=== PATIENT | male | born 1965 | race Caucasian/White ===

== ENCOUNTER → 2018-02-22 12:44 | Outpatient (CLI) | payer BC, SELFPAY ==
--- NOTE | 2018-02-22 12:56 | CT_ITS ---
STUDY: CT ABDOMEN AND PELVIS WITH CONTRAST REASON FOR EXAM: Male, 52 years old. Prostate cancer. RADIATION DOSAGE (If Supplied By Facility): CTDIvol = ( 16.99 ) mGy, DLP = ( 1467.93 ) mGycm TECHNIQUE: Transaxial images were obtained from the dome of the diaphragm to the symphysis pubis without oral contrast. 100 ml of Isovue 300 contrast was administered. Sagittal and coronal images were reconstructed. Individualized dose optimization techniques were used for this CT. COMPARISON: CT of the abdomen, July 01, 2017. FINDINGS: The visualized lung bases are unremarkable. The visualized portions of the heart are within normal limits. Normal liver. Normal gallbladder and extrahepatic biliary system. Normal spleen. Normal pancreas. Normal bilateral adrenal glands. Normal right kidney. The mass seen in the lower pole right kidney on the prior study is no longer present. Normal left kidney. Normal bilateral ureters. Normal visualized stomach. Normal small intestine. Normal colon. The appendix is visualized and appears normal. There is diffuse atherosclerotic calcification of the abdominal aorta, without a demonstrated aneurysm. Normal inferior vena cava. Normal retroperitoneum. Normal urinary bladder. Normal prostate and seminal vesicle appears no pelvic lymphadenopathy. No free air or free fluid is seen within the peritoneal cavity. There is an umbilical artery of omental fat. There is a left inguinal hernia of omental fat. The abdominal wall is otherwise unremarkable. There are degenerative changes of the lumbar spine. No lytic or blastic lesions are seen in the visualized bony structures. CT/Abdomen/Pelvis WITH Contrast IMPRESSION: Normal enhanced CT of the abdomen and pelvis. There is no evidence of local extension or metastatic disease. Electronically Signed: Saji Wong DO at 17:40 EDT Tel [phone], Service support ,
[2018-02-22 13:14] LABS: Anion Gap 7 (5-15); BUN 15 mg/dL (7-18); BUN/Creat Ratio 14.7 RATIO (10-20); Calcium,Total 9.1 mg/dL (8.5-10.1); Chloride 104 mmol/L (98-107); Creatinine, Serum 1.02 mg/dL (0.70-1.30); EST Glomerular Filtration Rate 82 mL/min (>60); Est Glom Filt Rate - Afr Amer 99 mL/min (>60); Glucose 99 mg/dL (74-106); Potassium 3.8 mmol/L (3.5-5.1); Sodium Level 137 mmol/L (136-145)
== END ==
PROVIDERS: Visit Provider Urology
DX: C61 Malignant neoplasm of prostate (principal)
CPT/HCPCS: 36415; 74177; 80048; Q9967

== ENCOUNTER → 2018-03-21 17:16 | Outpatient (CLI) | payer BC, SELFPAY ==
--- NOTE | 2018-03-21 17:30 | RAD_ITS ---
STUDY: X-RAY CHEST REASON FOR EXAM: Male, 52 years old. Flank pain, kidney cancer TECHNIQUE: Frontal and lateral views COMPARISON: August 11, 2017 FINDINGS: The lungs are clear and expanded. There is no demonstrated pleural abnormality. Normal size heart. Normal mediastinum and jelena. Normal visualized pulmonary arteries. Normal visualized aortic arch and descending thoracic aorta. Mild degenerative changes of the thoracic spine. Normal visualized ribs, clavicles, and shoulders. There is no demonstrated abnormality of the visualized soft tissue structures of the upper abdomen. RAD/Chest PA and Lateral IMPRESSION: Normal x-ray examination of the chest. Electronically Signed: Maximo Davison DO at 22:23 EDT Tel [phone], Service support ,
[2018-03-21 18:56] LABS: ALB/GLOB Ratio 1.2 RATIO (0.9-2.4); AST(SGOT) 20 U/L (15-37); Alanine Aminotransfer ALT/SGPT 37 U/L (16-61); Alkaline Phosphatase 58 U/L (45-117); Anion Gap 9 (5-15); BUN 13 mg/dL (7-18); BUN/Creat Ratio 12.5 RATIO (10-20); Calcium,Total 8.4 mg/dL (8.5-10.1); Chloride 105 mmol/L (98-107); Creatinine, Serum 1.04 mg/dL (0.70-1.30); EST Glomerular Filtration Rate 80 mL/min (>60); Est Glom Filt Rate - Afr Amer 97 mL/min (>60); Globulin 3.3 g/dL (2.2-4.2); Glucose 91 mg/dL (74-106); Potassium 3.5 mmol/L (3.5-5.1); Protein, Total 7.3 g/dL (6.4-8.2); Sodium Level 141 mmol/L (136-145)
== END ==
PROVIDERS: Visit Provider Urology
DX: Z87.442 Personal history of urinary calculi (principal); Z85.528 Personal history of other malignant neoplasm of kidney; Z12.5 Encounter for screening for malignant neoplasm of prostate
CPT/HCPCS: 36415; 71046; 80053

== ENCOUNTER → 2018-09-21 16:32 | Outpatient (CLI) | payer BC, SELFPAY ==
[2017-08-17 14:20] VITALS: BMI 37.4
[2018-09-21 17:23] LABS: Hematocrit 44.4 % (40-54); Hemoglobin 14.9 g/dl (13.0-16.5); Mean Corp Hgb Conc 33.6 g/gl (32-36); Mean Corpuscular Hgb 26.3 pg (27.0-32.0); Mean Corpuscular Volume 78.3 fL (80-94); Mean Platelet Vol. 8.8 fl (6.2-12.0); Platelet Count 250 K/mm3 (150-450); RBC Distribution Width CV 12.9 % (11.6-14.6); RBC Distribution Width SD 36.1 fl (35.1-43.9); Red Blood Count 5.67 M/mm3 (4.6-6.2)
[2018-09-21 17:24] LABS: Scan Indicated on CBC? Y/N NO
[2018-09-21 18:05] LABS: AST(SGOT) 36 U/L (15-37); Alanine Aminotransfer ALT/SGPT 65 U/L (16-61); Albumin, Serum 3.8 g/dL (3.2-5.0); Alkaline Phosphatase 76 U/L (45-117); Anion Gap 8 (5-15); BUN 14 mg/dL (7-18); BUN/Creat Ratio 13.9 RATIO (10-20); Calcium,Total 8.8 mg/dL (8.5-10.1); Chloride 104 mmol/L (98-107); Creatinine, Serum 1.01 mg/dL (0.70-1.30); EST Glomerular Filtration Rate 83 mL/min (>60); Est Glom Filt Rate - Afr Amer 100 mL/min (>60); Globulin 3.7 g/dL (2.2-4.2); Glucose 82 mg/dL (74-106); Protein, Total 7.5 g/dL (6.4-8.2); Sodium Level 140 mmol/L (136-145)
--- OUTSIDE RECORDS SUMMARY | 2018-11-16 22:41 | XMS RPT_ITS ---
:1965 Author Organization [facility] Care Team Providers Name Role Phone Quoc Iglesias Attending Unavailable Rachel, Umberto Referring Unavailable Quoc Iglesias Attending Unavailable Primay Care Physicia, No Primary Care Unavailable Quoc Iglesias Referring Unavailable Rachel, Umberto Attending Unavailable Rachel, Umberto Referring Unavailable Primay Care Physicia, No Primary Care Unavailable Rachel, Umberto Attending Unavailable Rachel, Umberto Referring Unavailable Primay Care Physicia, No Primary Care Unavailable Rachel, Umberto Attending Unavailable Rachel, Umberto Referring Unavailable Primay Care Physicia, No Primary Care Unavailable Rachel, Umberto Attending Unavailable Rachel, Umberto Referring Unavailable Primay Care Physicia, No Primary Care Unavailable PROBLEMS PROBLEMS DATE TYPE CONDITION / CODE ATTENDING STATUS SOURCE 10/03/2018 Unknown R59.9 - Enlarged Kelsie, Active [place] lymph nodes, [facility] unspecified / Hospital R59.9(ICD-10) Repository PROCEDURES PROCEDURES No Procedure Records FoundRESULTS RESULTS SURGERY VISIT REPORT Observed: 10/03/2018 Status: F Source: [place] 4:31 PM [facility] REPOSITORY [facility] [address] [place] [address] OFFICE VISIT Date of Service: 10/03/18 MR#: [id number] Acct: [id number] Name: MITESH CAMARA Rep #: [id number] : 1965 Provider: Quoc Iglesias MD Age/Sex: 52/M Location: [facility] Status: Signed Intake Vital Signs10/03/18 Body Mass Index (BMI) 37.4 10/03/18 Height 6 ft 10/03/18 Weight: 236 lb 5 oz 10/03/18 Body Mass Index (BMI) 32.0 10/03/18 Blood Pressure 133/86 H Intake Visit Reasons: Lt Armpit Lump CT WC 09/28 Chief Complaint: left axillary mass Waste And Batting Waste Chopper Required: No Is patient in pain?: No Allergies No Known Allergies Allergy (Verified 10/03/18 14:21) Medications Antiarthritic Combination No.2 [Glucosamine-Chondroitin] 2 tab PO BID 08/11/17 [History Confirmed 10/03/18] azithromycin 250 mg tablet See Rx Instructions PO .COMPLEX #6 tab 10/03/18 [Rx Confirmed 10/03/18] meloxicam 7.5 mg tablet 7.5 mg PO DAILY 10/03/18 [History Confirmed 10/03/18] PFSH Medical History BPH (benign prostatic hyperplasia) (Acute) Back pain (Acute) Cancer of kidney (Acute) Osteoarthritis (Acute) Surgical History History of partial nephrectomy (Acute) Family History Mother Heart disease Cancer Social History Smoking Status: Current every day smoker how long ago did patient quit smokin years HPI HPI HPI: MITESH CAMARA, is a 52 M who presents to the office today for left axillary swelling. The patient notes that he has been feeling a lump under his left armpit for the last month or so. At the time that this started he was having fevers and chills and night sweats. He does not note any known trauma to his arm or chest region. He has never noticed this in the past. ROS General General: Yes weight change (Weight loss, intentional); no fatigue Musc Musculoskeletal: Yes back problems and arthritis Cardio Cardiovascular: No murmur, pacemaker, heart disease, atrial fibrillation, high blood pressure, heart attack, heart stent, palpitations, shortness of breat with exertion or chest pain Psych Psychiatric: No depression or anxiety Resp Respiratory: No shortness of breath, No sleep apnea, No cough, No COPD, No asthma, No emphysema, No wheezing Gastro Gastrointestinal: No abdominal pain, No nausea or vomiting, No diarrhea, No constipation, No blood in stool, No acid reflux, No hemorrhoids, No ulcers, No gallbladder problem, No black,tarry stools [place] Hematologic: No blood thinners Exam Const General: cooperative Orientation: alert, oriented x3 Resp Effort AND Inspection: normal respiratory effort Auscultation: clear to auscultation bilaterally Cardio Rate: regular rate Rhythm: regular rhythm Heart Sounds: no murmurs GI Inspection: non-distended Palpation: soft, nontender Musc Other: Patient does have left axillary swelling. Office Procedures Biopsy Provider Documentation The left axilla was prepped and draped in usual sterile fashion. Next an ultrasound was used to localize the lymph node. A small segment of skin was anesthetized with lidocaine and a small prachi was made with an 11 blade scalpel. Next a 14-gauge core needle was placed into the axillary mass under direct visualization with ultrasound and deployed several times. At least 5 good cores were obtained. The patient did have purulent material coming out of his incision from the lymph node biopsy. This was cultured. Next the area was cleaned and a Steri-Strip was placed over the incision and as well as a bandage. Biopsy Lymphnode Biopsy: 48016 Lymphnode w Needle Procedure Time Out Time Out Informed consent given: Yes Consent signed: Yes Time out checklist: patient, procedure, site marked/identified, positioning of patient, supplies available, allergies confirmed, team agrees on procedure Time out staff in room: Yes Time out verified: Yes Time out date: 10/03/18 Time out time: 14:23 Assessment AND Plan Problems 1. Enlarged lymph nodes in armpit R59.0 Plan 1. The patient had a recent CT scan which showed an enlarged necrotic lymph node in the left axilla as well as swelling of the surrounding lymph nodes. The patient does not note any obvious trauma but he does have what appears to be a possible source of infection on his left middle finger. 2. I went over the CAT scan results with him. I am unsure if this is inflammatory versus malignant. I offer the patient excisional and core needle biopsy. I did a core needle biopsy under ultrasound guidance in the office. There was purulent material aspirated from lymph node. The patient was started on a Z-Alexis as there is a possibility that this is cat scratch disease. The patient does admit to having cats and does not know where the infection on his finger came from. 3. Await pathology and cultures. Continue antibiotics. I will call him later this week. Quoc gIlesias MD Pager: [facility] [address] [place] [address], [address] [place] [address] Office: Orders Orders: Medications New: azithromycin (Zithromax Z-Alexis) take 500 mg today (day 1), then 25 Florecita Pineda PA-C 0 mg for 4 days (days 2-5) PO 6 ta bs 0RF Coding Level of Care Code No Charge Diagnoses Enlarged lymph nodes in armpit R59.0 Additional Codes Biopsy - Lymphnode Biopsy: 50832 Lymphnode w Needle (93482) Comment procedure 10/03/18 1631 <Electronically signed by Quoc Iglesias MD> Date Quoc Iglesias MD Cosigner Signature: Date (if applicable) CC: Parrish Ramos MD Observed: 10/03/2018 Status: F Source: [place] CULTURE, DEEP WOUND 4:17 PM [facility] REPOSITORY Gram Stain Gram Stain 3+ Red Blood Cells Rare White Blood Cells No organisms seen Wound Culture No growth aerobically. Cult, Anaerobic No anaerobic bacteria isolated. Performed By: #### M100.1500 #### [facility] [address] [place], [address] CAT SCRATCH DISEASE Collected: 10/03/2018 Status: F Source: [place] AB 3:21 PM [facility] REPOSITORY TYPE CODE TESTS RESULT OUT OF RANGE REFERENCE UNITS LAB L7100.0200 Neg:<1:320 titer Normal Negative B.henselae IgG LAB L7100.0300 Neg:<1:100 titer Normal Negative B.henselae IgM LAB L7100.0400 Neg:<1:320 titer Normal Negative B.hdez IgG LAB L7100.0500 Neg:<1:100 titer Normal Negative B.hdez IgM Result Comment: Note: Bartonella henselae is now regarded as the etiologic agent of Cat Scratch Disease, bacillary angiomatosis, endocarditis and fever with bacteremia. Bartonella hdez also causes bacillary angiomatosis particularly among immunocompromised patients, and trench fever. This test was developed and its performance characteristics determined by [facility]. It has not been cleared or approved by the Food and Drug Administration. The FDA has determined that such clearance or approval is not necessary. Performed at: [address] [id number] Wood And Hardware Outfitter: Maribel Burton MD, Phone: [phone] Performed By: #### L7100.0100 #### [facility] (refer to report for specific site) refer to report for address and phone number AXILLARY NODE BIOPSY Observed: 10/03/2018 Status: F Source: [place]AN[place] 2:50 PM [facility] REPOSITORY Patient: MITESH CAMARA : 1965 (52/M) Acct Num: [id number] Phys: [address],Quoc Unit Num: [id number] Loc: [facility] Specimen: [id number] Received: 10/03/183 Spec Type: AX NODE BX TISSUES 1 TISSUES: Axillary lymph node, NOS COMMENT The specimen is evaluated at the time of touch preps by Dr. Avila. Immediate Evaluation = Lymphocytes are noted. AFB and GMS stains with matched controls were used in the evaluation of this case and are negative for microorganisms. Immunohistochemistry ([id number]) supports the above diagnosis. There is no evidence of lymphoproliferative disorder. Case has been reviewed in consultation with Dr. Avila who concurs with the above diagnosis. IDC:CHEVY GROSS DESCRIPTION Received fresh labeled with the patient's name is a specimen designated left axillary lymph node. The specimen consists of multiple elongated fragments of hyatt soft tissue that in aggregate measure 3 x 1 x 0.1 cm. The specimen is totally submitted in one cassette. Green Marketing Analyst touch prep smears are prepared rapidly (2 stained with DQ and 2 stained with H AND E). Tissue is saved for flow cytometry in case it is needed. The tissue is submitted in one cassette. / : 10/03/18 The tissue saved for flow is submitted in cassette 2. / : 10/04/18 TC:3 CPT: 58042, 40228, 23970 x2 HEADER OPERATION: Needle core biopsy of left axilla lymph node PRE-OP DIAGNOSIS: Enlarged axillary lymph node TISSUE SUBMITTED: Left axillary lymph node MICROSCOPIC DESCRIPTION Slides are reviewed. MICROSCOPIC DIAGNOSIS Left axillary lymph node, core biopsy: Necrotizing granulomatous inflammation. Negative for acid fast bacilli and fungal organisms. No evidence of malignancy. See Comment. AM:dmitri 10/04/18 Signed Tarik Mendosa DO 10/06/18 <signature on file> Performed By: #### PAXNB #### [facility] [place], [address] IMMUNOHISTOCHEMISTRY Observed: 10/03/2018 Status: F Source: [place] 12:00 AM [facility] REPOSITORY Patient: MITESH CAMARA : 1965 (52/M) Acct Num: [id number] Phys: [address],Quoc Unit Num: [id number] Loc: [facility] Specimen: [id number] Received: 10/05/181031 Spec Type: IMMUNO TISSUES 1 TISSUES: Axillary lymph node, NOS SPECIMEN INFORMATION: Tissue Source: Left axillary lymph node Clinical Info: Enlarged axillary lymph node Specimen Number: [id number] CPT code: 46858, 00316 x6 METHODOLOGY: Deparaffinized sections of prefer/formalin-fixed tissue or PAP/DQ stained slides are incubated with monoclonal/polyclonal antibodies/oligonucleotide probes. Localization is made via biotin free immunoperoxidase method. Appropriate controls are performed and reacted as expected. Results on target cell population are indicated in the following table: RESULTS: ANTIBODY / CLONE RESULT CD3 (PS1) positive CD5 (SP10) positive CD45 (RP2/18) positive CD79a (11E3) positive CD138 (B-A38) positive AE1-3 (AE1/AE3/PCK26) negative Macro (HAM-56) positive These tests were developed and their performance characteristics determined by [facility]. They may not have been cleared or approved by the U.S. Food and Drug Administration. The FDA has determined that such clearance or approval is not necessary. INTERPRETATION: Left axillary lymph node, core biopsy: Polytypic lymphoid tissue. AM:dmitri 10/06/18 Comment: There is no evidence of lymphoproliferative disorder. PHYSICIAN AND INSTITUTION [address] [address] Signed Tarik Mendosa DO 10/06/18 <signature on file> Performed By: #### PIMM #### [facility] [address] [place] [address]. [place], [address] CHEST PA AND LATERAL Observed: 09/28/2018 Status: F Source: [place] 2:49 PM [facility] REPOSITORY [facility] Imaging Services [address] [place] [address] Chest PA and Lateral MR#: [id number] Acct: [id number] Name: MITESH CAMARA Rep #: [id number] : 1965 M 52 From: Antione Cabrales MD PCP: Care Physician, No Primary Status: REG CLI Study: Chest PA and Lateral Date of Exam: 09/28/18 Exam# [id number] Ordering Dr: Parrish Ramos MD STUDY: X-RAY CHEST REASON FOR EXAM: Male, 52 years old. Lump on left side underarm pit. TECHNIQUE: PA and lateral views of the chest. COMPARISON: PA and lateral chest x-ray March 21, 2018. FINDINGS: The lungs are clear and expanded. There is no demonstrated pleural abnormality. Normal size heart. Normal mediastinum and jelena. Normal visualized pulmonary arteries. Normal visualized aortic arch and descending thoracic aorta. There are stable multilevel degenerative changes and minor dextroscoliosis of the visualized thoracic spine. Normal visualized ribs, clavicles, and shoulders. There is no demonstrated abnormality of the visualized soft tissue structures of the upper abdomen. RAD/Chest PA and Lateral IMPRESSION: No acute cardiopulmonary disease. Electronically Signed: Addy Cabrales MD at 13:54 EST , Service support , CC: No Primary Care Physician; Parrish Ramos MD Weatherseal Technician: Signed CHEST WITH CONTRAST Observed: 09/28/2018 Status: F Source: [place] 2:44 PM [facility] REPOSITORY [facility] Imaging Services [address] [place] [address] Chest WITH Contrast MR#: [id number] Acct: [id number] Name: MITESH CAMARA Rep #: [id number] : 1965 M 52 From: Phillip Penn MD PCP: Care Physician, No Primary Status: REG CLI Study: Chest WITH Contrast Date of Exam: 09/28/18 Exam# [id number] Ordering Dr: Parrish Ramos MD STUDY: CT CHEST WITH CONTRAST REASON FOR EXAM: Male, 52 years old. Kidney cancer follow-up RADIATION DOSAGE (If Supplied By Facility): CTDIvol = ( 22.83 ) mGy, DLP = ( 3005.78 ) mGycm TECHNIQUE: Transaxial imaging was performed following intravenous administration of 100mL ml of Isovue 300 contrast material. Individualized dose optimization techniques were used for this CT. COMPARISON: None. FINDINGS: TRACHEA, THYROID, ESOPHAGUS: No tracheomalacia,stricture or wall thickening. Thyroid and esophagus are normal CARDIOVASCULAR SYSTEM: The thoracic aorta is normal with no focal aneurysm or dissection. There are no abnormal calcifications/metallic densities at the aortic root. The pulmonary trunk and the left and right pulmonary arteries and their lobar and segmental branches all fail to show any abnormal and persistent filling defects to indicate the presence of pulmonary embolism. The heart is normal in size with no demonstration of any right ventricular strain. No developmental vascular anomalies are seen. JELENA AND LYMPH NODES: There is a large necrotic 3.4 x 2.4 cm left axillary lymph node. No right axillary adenopathy. No mediastinal adenopathy. LUNGS, LOW-ATTENUATION: No traction bronchiectasis, honeycombing,emphysema, lung cysts or cavitations LUNGS, HIGH ATTENUATION: No nodules/masses, ground glass opacities/consolidations or increased interstitial markings LUNGS, MOSAIC/CRAZY PAVING: Not evident PLEURA AND CHEST WALL: No plural effusions, pneumothoraces,rib fractures or any osteolytic/osteoblastic changes . The soft tissue chest wall including the breasts are normal UPPER ABDOMEN: The visualized portions of kidneys are normal. No metastatic foci in the liver. CT/Chest WITH Contrast IMPRESSION: The visualized portions of the kidneys look normal. The partial nephrectomy on the left side may have involved the inferior pole Enlarged 3.4 x 2.4 cm necrotic left axillary lymph adenopathy. No mediastinal, right axillary or hilar adenopathy. No osteolytic or osteoblastic changes are seen Electronically Signed: Phillip Penn MD at 7:52 EST Tel , Service support , CC: No Primary Care Physician; Parrish Ramos MD Weatherseal Technician: Signed CT ABD/PELVIS W/WO Observed: 09/28/2018 Status: F Source: [place] CONTRAST 2:44 PM [facility] REPOSITORY [facility] Imaging Services [address] [place] [address] [address] Abd/Pelvis W/WO Contrast MR#: [id number] Acct: [id number] Name: MITESH CAMARA Rep #: [id number] : 1965 M 52 From: Antione Cabrales MD PCP: Care Physician, No Primary Status: REG CLI Study: CT Abd/Pelvis W/WO Contrast Date of Exam: 09/28/18 Exam# [id number] Ordering Dr: Parrish Ramos MD STUDY: CT ABDOMEN AND PELVIS WITH AND WITHOUT CONTRAST REASON FOR EXAM: Male, 52 years old. Kidney cancer follow- up. Prior partial left nephrectomy and prostatectomy for cancer. Left axillary lymph node x1 month. RADIATION DOSAGE (If Supplied By Facility): CTDIvol = ( 22.83 ) mGy, DLP = ( 3005.78 ) mGycm TECHNIQUE: Transaxial images were obtained from the dome of the diaphragm to the symphysis pubis without oral contrast. 75mL ml of Isovue 300 contrast was administered. Sagittal and coronal images were reconstructed. Individualized dose optimization techniques were used for this CT. COMPARISON: CT abdomen pelvis February 22, 2018. FINDINGS: The visualized lung bases are unremarkable. The visualized portions of the heart are within normal limits. There is decreased attenuation of the liver consistent with steatosis. There is hepatomegaly, the right lobe measuring 19.5 cm in height. The portal vein diameter is 1.7 cm. Normal gallbladder and extrahepatic biliary system. Common bile duct diameter is 4.5 mm. There is borderline to mild splenomegaly, measuring 13.7 x 13.1 x 4.55 cm. Normal pancreas. Normal bilateral adrenal glands. Minor deformity at the lower pole of the right kidney, consistent with postsurgical change. Normal left kidney. No hydronephrosis. Normal visualized stomach. Normal small intestine. Normal colon. The appendix is visualized on series 604 images 52-59 and appears normal. There is mild to moderate atherosclerotic calcification of the abdominal aorta and proximal iliac arteries, without a demonstrated aneurysm. Normal inferior vena cava. Normal retroperitoneum. Normal urinary bladder. The prostate gland size is upper normal. There are prostatic calcifications. There is a stable very small umbilical hernia containing fat. There is mildly asymmetric fatty filling of the left spermatic cord, which could reflect an inguinal hernia. There are multilevel degenerative changes of the visualized lumbar spine as well as degenerative arthrosis of the pubic symphysis. No demonstrated lytic or blastic lesion. CT/CT Abd/Pelvis W/WO Contrast IMPRESSION: 1. Minor postsurgical deformity at the lower pole of the right kidney. No sign of recurrent or metastatic malignancy. 2. Hepatomegaly with steatosis. No focal liver mass. The spleen is borderline to mildly enlarged. 3. Mild to moderate aortoiliac atherosclerotic calcific plaquing. No demonstrated aneurysm. 4. The prostate gland is upper normal in size with some coarse calcifications. 5. The bowel is unremarkable without signs of obstruction. The appendix is normal. 6. Question of fat filled left internal hernia. Electronically Signed: Addy Cabrales MD at 12:33 EST , Service support , CC: No Primary Care Physician; Parrish Ramos MD Weatherseal Technician: Signed CBC-COMPLETE BLOOD CNT Collected: 09/21/2018 Status: F Source: [place]AN[place] NO DIFF 4:35 PM [facility] REPOSITORY TYPE CODE TESTS RESULT OUT OF RANGE REFERENCE UNITS LAB L100.1000 4.4-11.0 K/mm3 Normal WBC 8.0 LAB L100.1200 4.6-6.2 M/mm3 Normal RBC 5.67 LAB L100.1300 13.0-16.5 g/dl Normal HGB 14.9 LAB L100.1400 40-54 % Normal HCT 44.4 LAB L100.1500 80-94 fL Low MCV 78.3 LAB L100.1600 27.0-32.0 pg Low MCH 26.3 LAB L100.1700 32-36 g/gl Normal MCHC 33.6 LAB L100.1810 11.6-14.6 % Normal RDW CV 12.9 LAB L100.1820 35.1-43.9 fl Normal RDW SD 36.1 LAB L100.1900 150-450 K/mm3 Normal PLT 250 LAB L100.2000 6.2-12.0 fl Normal MPV 8.8 Performed By: #### L100.0500 #### [facility] [address] [place], [place], [address] COMPREHENSIVE METABOLIC Collected: 09/21/2018 Status: F Source: [place]ANNA VARGHESE 4:35 PM [facility] REPOSITORY TYPE CODE TESTS RESULT OUT OF RANGE REFERENCE UNITS LAB L501.0100 74-106 mg/dL Normal GLU 82 Result Comment: Please note revised GLUCOSE reference range effective 2017. LAB L501.1000 7-18 mg/dL Normal BUN 14 LAB L501.1100 0.70-1.30 mg/dL Normal CREAT,SERUM 1.01 Result Comment: The validity of the calculated GFR AND GFRAA in patients over 70 years has not been determined. Clinical correlation is essential. LAB L501.1110 >60 mL/min Normal EST GFR 83 Result Comment: Non- GFR Calc LAB L501.1115 >60 mL/min Normal EST GFR - AA 100 Result Comment: GFR Calc LAB L501.1300 10-20 RATIO Normal BUN/CRE 13.9 LAB L501.1500 6.4-8.2 g/dL T Normal PROT 7.5 LAB L501.1800 3.2-5.0 g/dL Normal ALB 3.8 LAB L501.1950 2.2-4.2 g/dL Normal GLOB 3.7 LAB L501.2000 0.9-2.4 RATIO Normal A/G 1.0 LAB L501.2200 8.5-10.1 mg/dL CA Normal 8.8 LAB L501.4100 15-37 U/L Normal AST 36 LAB L501.4305 45-117 U/L Normal ALK P 76 LAB L501.4405 16-61 U/L High ALT 65 LAB L501.4600 0.20-1.00 mg/dL T Normal BILI 0.40 LAB L501.5300 136-145 mmol/L NA Normal 140 LAB L501.5600 3.5-5.1 mmol/L K Normal 4.0 LAB L501.5900 98-107 mmol/L CL Normal 104 LAB L501.6100 21.0-32.0 mmol/L Normal CO2 28.0 LAB L501.6200 5-15 Normal GAP 8 Performed By: #### L500.4050 #### [facility] [address] [place], [address] COMPREHENSIVE METABOLIC Collected: 03/21/2018 Status: F Source: HANNA VARGHESE 5:55 PM [facility] REPOSITORY TYPE CODE TESTS RESULT OUT OF RANGE REFERENCE UNITS LAB L501.0100 74-106 mg/dL Normal GLU 91 Result Comment: Please note revised GLUCOSE reference range effective 2017. LAB L501.1000 7-18 mg/dL Normal BUN 13 LAB L501.1100 0.70-1.30 mg/dL Normal CREAT,SERUM 1.04 Result Comment: The validity of the calculated GFR AND GFRAA in patients over 70 years has not been determined. Clinical correlation is essential. LAB L501.1110 >60 mL/min Normal EST GFR 80 Result Comment: Non- GFR Calc LAB L501.1115 >60 mL/min Normal EST GFR - AA 97 Result Comment: GFR Calc LAB L501.1300 10-20 RATIO Normal BUN/CRE 12.5 LAB L501.1500 6.4-8.2 g/dL T Normal PROT 7.3 LAB L501.1800 3.2-5.0 g/dL Normal ALB 4.0 LAB L501.1950 2.2-4.2 g/dL Normal GLOB 3.3 LAB L501.2000 0.9-2.4 RATIO Normal A/G 1.2 LAB L501.2200 8.5-10.1 mg/dL Low CA 8.4 LAB L501.4100 15-37 U/L Normal AST 20 LAB L501.4305 45-117 U/L Normal ALK P 58 LAB L501.4405 16-61 U/L Normal ALT 37 LAB L501.4600 0.20-1.00 mg/dL T Normal BILI 0.30 LAB L501.5300 136-145 mmol/L NA Normal 141 LAB L501.5600 3.5-5.1 mmol/L K Normal 3.5 LAB L501.5900 98-107 mmol/L CL Normal 105 LAB L501.6100 21.0-32.0 mmol/L Normal CO2 27.0 LAB L501.6200 5-15 Normal GAP 9 Performed By: #### L500.4050 #### [facility] [address] [place], [address] CHEST PA AND LATERAL Observed: 03/21/2018 Status: F Source: [place] 5:29 PM [facility] REPOSITORY [facility] Imaging Services [address] [place] [address] Chest PA and Lateral MR#: [id number] Acct: [id number] Name: MITESH CAMARA Rep #: [id number] : 1965 M 52 From: Maximo Davison DO PCP: Care Physician, No Primary Status: REG CLI Study: Chest PA and Lateral Date of Exam: 03/21/18 Exam# [id number] Ordering Dr: Parrish Ramos MD STUDY: X-RAY CHEST REASON FOR EXAM: Male, 52 years old. Flank pain, kidney cancer TECHNIQUE: Frontal and lateral views COMPARISON: August 11, 2017 FINDINGS: The lungs are clear and expanded. There is no demonstrated pleural abnormality. Normal size heart. Normal mediastinum and jelena. Normal visualized pulmonary arteries. Normal visualized aortic arch and descending thoracic aorta. Mild degenerative changes of the thoracic spine. Normal visualized ribs, clavicles, and shoulders. There is no demonstrated abnormality of the visualized soft tissue structures of the upper abdomen. RAD/Chest PA and Lateral IMPRESSION: Normal x-ray examination of the chest. Electronically Signed: Maximo Davison DO at 22:23 EDT Tel [phone], Service support , CC: No Primary Care Physician; Parrish Ramos MD [employer] Technician: Signed ABDOMEN/PELVIS WITH Observed: 02/22/2018 Status: F Source: HANNA CONTRAST 12:57 PM [facility] REPOSITORY [facility] Imaging Services [address] [place] [address] Abdomen/Pelvis WITH Contrast MR#: [id number] Acct: [id number] Name: MITESH CAMARA Rep #: [id number] : 1965 M 52 From: Saji Wong DO PCP: Care Physician, No Primary Status: REG CLI Study: Abdomen/Pelvis WITH Contrast Date of Exam: 02/22/18 Exam# [id number] Ordering Dr: Parrish Ramos MD STUDY: CT ABDOMEN AND PELVIS WITH CONTRAST REASON FOR EXAM: Male, 52 years old. Prostate cancer. RADIATION DOSAGE (If Supplied By Facility): CTDIvol = ( 16.99 ) mGy, DLP = ( 1467.93 ) mGycm TECHNIQUE: Transaxial images were obtained from the dome of the diaphragm to the symphysis pubis without oral contrast. 100 ml of Isovue 300 contrast was administered. Sagittal and coronal images were reconstructed. Individualized dose optimization techniques were used for this CT. COMPARISON: CT of the abdomen, July 01, 2017. FINDINGS: The visualized lung bases are unremarkable. The visualized portions of the heart are within normal limits. Normal liver. Normal gallbladder and extrahepatic biliary system. Normal spleen. Normal pancreas. Normal bilateral adrenal glands. Normal right kidney. The mass seen in the lower pole right kidney on the prior study is no longer present. Normal left kidney. Normal bilateral ureters. Normal visualized stomach. Normal small intestine. Normal colon. The appendix is visualized and appears normal. There is diffuse atherosclerotic calcification of the abdominal aorta, without a demonstrated aneurysm. Normal inferior vena cava. Normal retroperitoneum. Normal urinary bladder. Normal prostate and seminal vesicle appears no pelvic lymphadenopathy. No free air or free fluid is seen within the peritoneal cavity. There is an umbilical artery of omental fat. There is a left inguinal hernia of omental fat. The abdominal wall is otherwise unremarkable. There are degenerative changes of the lumbar spine. No lytic or blastic lesions are seen in the visualized bony structures. CT/Abdomen/Pelvis WITH Contrast IMPRESSION: Normal enhanced CT of the abdomen and pelvis. There is no evidence of local extension or metastatic disease. Electronically Signed: Saji Wong DO at 17:40 EDT Tel [phone], Service support , CC: No Primary Care Physician; Parrish Ramos MD [employer] Technician: Signed BASIC METABOLIC Collected: 02/22/2018 Status: F Source: [place]PRISE PROFILE (BMP) 12:50 PM [facility] REPOSITORY TYPE CODE TESTS RESULT OUT OF RANGE REFERENCE UNITS LAB L501.0100 74-106 mg/dL Normal GLU 99 Result Comment: Please note revised GLUCOSE reference range effective 2017. LAB L501.1000 7-18 mg/dL Normal BUN 15 LAB L501.1100 0.70-1.30 mg/dL Normal CREAT,SERUM 1.02 Result Comment: The validity of the calculated GFR AND GFRAA in patients over 70 years has not been determined. Clinical correlation is essential. LAB L501.1110 >60 mL/min Normal EST GFR 82 Result Comment: Non- GFR Calc LAB L501.1115 >60 mL/min Normal EST GFR - AA 99 Result Comment: GFR Calc LAB L501.1300 10-20 RATIO Normal BUN/CRE 14.7 LAB L501.2200 8.5-10.1 mg/dL CA Normal 9.1 LAB L501.5300 136-145 mmol/L NA Normal 137 LAB L501.5600 3.5-5.1 mmol/L K Normal 3.8 LAB L501.5900 98-107 mmol/L CL Normal 104 LAB L501.6100 21.0-32.0 mmol/L Normal CO2 26.0 LAB L501.6200 5-15 Normal GAP 7 Performed By: #### L500.2500 #### [facility] [address] [place], [address] ALLERGIES ALLERGIES DATE TYPE / CODE NAME / CODE REACTION SEVERITY SOURCE 10/03/2018 Drug No Known Unknown [facility] Allergy/4160 Allergies/F00 Hospital 53945(SNOMED 3004243(RXNOR Repository CT) M) ENCOUNTERS ENCOUNTERS ADMIT/DISCHARGE ACCOUNT ADMITTING ENCOUNTER LOCATION SOURCE NUMBER CLASS 10/03/2018 [id number] [facility] [place] [facility] ing:PAVLAB Repository 10/03/2018/ [id number] [facility]ulatory [facility] [place] [facility] 2 [facility] Repository 09/28/2018 [id number] [facility] [place] [facility] ing:CT Repository 09/21/2018 [id number] [facility] [place] [facility] ing:LAB Repository 03/21/2018 [id number] [facility] [place] [facility] ing:LAB Repository 02/22/2018 [id number] [facility] [place] 8 [facility] ing:CT Repository PAYERS PAYERS ENCOUNTER GUARANTOR PAYER SUBSCRIBER SOURCE 10/03/2018 EDAASHISH Seo Primary JAYLYN L [place] [id number] Insurance:ANTHEMPolic SHEPPARDDOB[facility] [place]: [id number] [id number] Repository [address]Isr: (330) Date:9555-14-59LW [phone] () [id number], [place] [address]EF: 10/03/2018 Secondary NOT GIVENUNK [place] Insurance:SELF PAY [facility] Number: Effective Repository Date:2018-10-03 10/03/2018 MITESH Seo Primary JAYLYN L [place] [id number] Insurance:ANTHEMPolic SHEPPARDDOB: [facility] [place] Number: [id number] [id number] Repository [address]Pye: (330) Date:3888-69-25DZ [phone] () [id number], [place] [address]GY: 10/03/2018 Secondary NOT GIVENUNK [place] Insurance:SELF PAY [facility] Number: Effective Repository Date:2018-10-03 09/28/2018 MITESH L Primary JAYLYN L [place] [id number] Insurance:ANTHEMPolic SHEPPARDDOB: [facility] [place] Number: [id number] [id number] Repository [address]Rrj: (330) Date:5606-85-57TC [phone] () [id number] [place] [address]TL: 09/28/2018 Secondary NOT GIVENUNK [place] Insurance:SELF PAY [facility] Number: Effective Repository Date:2018-09-21 09/21/2018 Edward L Primary Jaylyn L [place] [id number] E Insurance:ANTHEMPolic SheppardDOB: [facility] y Number: [id number] [id number] Repository [address]Evd: (330) Date:0255-11-17UE [phone] () [id number] METCALF [address]AB: 09/21/2018 Secondary NOT GIVENUNK [place] Insurance:SELF PAY [facility] Number: Effective Repository Date:2018-09-21 03/21/2018 Edward L Primary Jaylyn L [place] [id number] E Insurance:ANTHEMPolic SheppardDOB: [facility] y Number: [id number] [id number] Repository [address]Ctp: (330) Date:4546-77-40XF [phone] () [id number] METCALF [address]RD: 03/21/2018 Secondary NOT GIVENUNK [place] Insurance:SELF PAY [facility] Number: Effective Repository Date:2018-03-21 02/22/2018 Edward L Primary Jaylyn L [place] [id number] [address] Insurance:ANTHEMPolic SheppardDOB: [facility] y Number: [id number] [id number] Repository [address]Zdw: (330) Date:8704-35-39AK [phone] () [id number] METCALF [address]CR: 02/22/2018 Secondary NOT GIVENUNK [place] Insurance:SELF PAY [facility] Number: Effective Repository Date:2018-02-14
== END ==
PROVIDERS: Referring Provider Urology; Visit Provider Urology
DX: C64.9 Malignant neoplasm of unspecified kidney, except renal pelvis (principal)
CPT/HCPCS: 36415; 80053; 85027

== ENCOUNTER → 2018-09-28 14:37 | Outpatient (CLI) | payer BC, SELFPAY ==
[2017-08-17 14:20] VITALS: BMI 37.4
--- NOTE | 2018-09-28 14:43 | CT_ITS ---
STUDY: CT CHEST WITH CONTRAST REASON FOR EXAM: Male, 52 years old. Kidney cancer follow-up RADIATION DOSAGE (If Supplied By Facility): CTDIvol = ( 22.83 ) mGy, DLP = ( 3005.78 ) mGycm TECHNIQUE: Transaxial imaging was performed following intravenous administration of 100mL ml of Isovue 300 contrast material. Individualized dose optimization techniques were used for this CT. COMPARISON: None. FINDINGS: TRACHEA, THYROID, ESOPHAGUS: No tracheomalacia,stricture or wall thickening. Thyroid and esophagus are normal CARDIOVASCULAR SYSTEM: The thoracic aorta is normal with no focal aneurysm or dissection. There are no abnormal calcifications/metallic densities at the aortic root. The pulmonary trunk and the left and right pulmonary arteries and their lobar and segmental branches all fail to show any abnormal and persistent filling defects to indicate the presence of pulmonary embolism. The heart is normal in size with no demonstration of any right ventricular strain. No developmental vascular anomalies are seen. MAX AND LYMPH NODES: There is a large necrotic 3.4 x 2.4 cm left axillary lymph node. No right axillary adenopathy. No mediastinal adenopathy. LUNGS, LOW-ATTENUATION: No traction bronchiectasis, honeycombing,emphysema, lung cysts or cavitations LUNGS, HIGH ATTENUATION: No nodules/masses, ground glass opacities/consolidations or increased interstitial markings LUNGS, MOSAIC/CRAZY PAVING: Not evident PLEURA AND CHEST WALL: No plural effusions, pneumothoraces,rib fractures or any osteolytic/osteoblastic changes . The soft tissue chest wall including the breasts are normal UPPER ABDOMEN: The visualized portions of kidneys are normal. No metastatic foci in the liver. CT/Chest WITH Contrast IMPRESSION: The visualized portions of the kidneys look normal. The partial nephrectomy on the left side may have involved the inferior pole Enlarged 3.4 x 2.4 cm necrotic left axillary lymph adenopathy. No mediastinal, right axillary or hilar adenopathy. No osteolytic or osteoblastic changes are seen Electronically Signed: Phillip Penn MD at 7:52 EST Tel , Service support ,
--- NOTE | 2018-09-28 14:43 | CT_ITS ---
STUDY: CT ABDOMEN AND PELVIS WITH AND WITHOUT CONTRAST REASON FOR EXAM: Male, 52 years old. Kidney cancer follow-up. Prior partial left nephrectomy and prostatectomy for cancer. Left axillary lymph node x1 month. RADIATION DOSAGE (If Supplied By Facility): CTDIvol = ( 22.83 ) mGy, DLP = ( 3005.78 ) mGycm TECHNIQUE: Transaxial images were obtained from the dome of the diaphragm to the symphysis pubis without oral contrast. 75mL ml of Isovue 300 contrast was administered. Sagittal and coronal images were reconstructed. Individualized dose optimization techniques were used for this CT. COMPARISON: CT abdomen pelvis February 22, 2018. FINDINGS: The visualized lung bases are unremarkable. The visualized portions of the heart are within normal limits. There is decreased attenuation of the liver consistent with steatosis. There is hepatomegaly, the right lobe measuring 19.5 cm in height. The portal vein diameter is 1.7 cm. Normal gallbladder and extrahepatic biliary system. Common bile duct diameter is 4.5 mm. There is borderline to mild splenomegaly, measuring 13.7 x 13.1 x 4.55 cm. Normal pancreas. Normal bilateral adrenal glands. Minor deformity at the lower pole of the right kidney, consistent with postsurgical change. Normal left kidney. No hydronephrosis. Normal visualized stomach. Normal small intestine. Normal colon. The appendix is visualized on series 604 images 52-59 and appears normal. There is mild to moderate atherosclerotic calcification of the abdominal aorta and proximal iliac arteries, without a demonstrated aneurysm. Normal inferior vena cava. Normal retroperitoneum. Normal urinary bladder. The prostate gland size is upper normal. There are prostatic calcifications. There is a stable very small umbilical hernia containing fat. There is mildly asymmetric fatty filling of the left spermatic cord, which could reflect an inguinal hernia. There are multilevel degenerative changes of the visualized lumbar spine as well as degenerative arthrosis of the pubic symphysis. No demonstrated lytic or blastic lesion. CT/CT Abd/Pelvis W/WO Contrast IMPRESSION: 1. Minor postsurgical deformity at the lower pole of the right kidney. No sign of recurrent or metastatic malignancy. 2. Hepatomegaly with steatosis. No focal liver mass. The spleen is borderline to mildly enlarged. 3. Mild to moderate aortoiliac atherosclerotic calcific plaquing. No demonstrated aneurysm. 4. The prostate gland is upper normal in size with some coarse calcifications. 5. The bowel is unremarkable without signs of obstruction. The appendix is normal. 6. Question of fat filled left internal hernia. Electronically Signed: Addy Cabrales MD at 12:33 EST , Service support ,
--- NOTE | 2018-09-28 14:48 | RAD_ITS ---
STUDY: X-RAY CHEST REASON FOR EXAM: Male, 52 years old. Lump on left side underarm pit. TECHNIQUE: PA and lateral views of the chest. COMPARISON: PA and lateral chest x-ray March 21, 2018. FINDINGS: The lungs are clear and expanded. There is no demonstrated pleural abnormality. Normal size heart. Normal mediastinum and jelena. Normal visualized pulmonary arteries. Normal visualized aortic arch and descending thoracic aorta. There are stable multilevel degenerative changes and minor dextroscoliosis of the visualized thoracic spine. Normal visualized ribs, clavicles, and shoulders. There is no demonstrated abnormality of the visualized soft tissue structures of the upper abdomen. RAD/Chest PA and Lateral IMPRESSION: No acute cardiopulmonary disease. Electronically Signed: Addy Cabrales MD at 13:54 EST , Service support ,
== END ==
PROVIDERS: Referring Provider Urology; Visit Provider Urology
DX: R22.32 Localized swelling, mass and lump, left upper limb (principal)
CPT/HCPCS: 71046; 71260; 74178; Q9967

== ENCOUNTER → 2018-10-03 15:16 | Outpatient (CLI) | payer BC, SELFPAY ==
--- NOTE | 2018-10-03 | IMM_PTH ---
PATIENT: MITESH CAMARA LOC: [facility] U#:[id number] AGE/SX: 59/M ROOM: RE10/03/[address]: Dr. Quoc Iglesias MD : 1965 BED: DIS: SPEC #: [id number] RECD: 10/05/18 10:32 STATUS: BRIDGET REQ #: [id number] CARY: 10/03/18 00:[address]: Quoc Iglesias DEPT: IMMUNOHISTOCHEMISTRY RECD BY: Milena Wayne ENTERED: 10/05/18 10:35 SP TYPE: IMMUNO OTHR DR: No Primary Care Phys Tissues: Axillary lymph node, NOS Procedures: CD138 (add) CD45 (add) CD5 (add) CD79A (add) MACRO (add) Pankeratin (add) CD3 (initial) PHYSICIAN & INSTITUTION [place] [id number] SPECIMEN INFORMATION: Tissue Source: Left axillary lymph node Clinical Info: Enlarged axillary lymph node Specimen Number: [id number] CPT code: 02072, 09695 x6 METHODOLOGY: Deparaffinized sections of prefer/formalin-fixed tissue or PAP/DQ stained slides are incubated with monoclonal/polyclonal antibodies/oligonucleotide probes. Localization is made via biotin free immunoperoxidase method. Appropriate controls are performed and reacted as expected. Results on target cell population are indicated in the following table: RESULTS: ANTIBODY / CLONE RESULT CD3 (PS1) positive CD5 (SP10) positive CD45 (RP2/18) positive CD79a (11E3) positive CD138 (B-A38) positive AE1-3 (AE1/AE3/PCK26) negative Macro (HAM-56) positive These tests were developed and their performance characteristics determined by [facility]. They may not have been cleared or approved by the U.S. Food and Drug Administration. The FDA has determined that such clearance or approval is not necessary. INTERPRETATION: Left axillary lymph node, core biopsy: Polytypic lymphoid tissue. AM:dmitri 10/06/18 Comment: There is no evidence of lymphoproliferative disorder.
--- NOTE | 2018-10-03 14:50 | AXNB_PTH ---
PATIENT: MITESH CAMARA LOC: [facility] U#:[id number] AGE/SX: 59/M ROOM: RE10/03/[address]: Dr. Quoc Iglesias MD : 1965 BED: DIS: SPEC #: [id number] RECD: 10/03/18 15:35 STATUS: BRIDGET REGuille #: [id number] CARY: 10/03/18 14:[address]: Quoc Iglesias DEPT: SURGICAL PATHOLOGY RECD BY: Tulio Soto ENTERED: 10/04/18 10:57 SP TYPE: AX NODE BX OTHR DR: No Primary Care Phys Tissues: Axillary lymph node, NOS Procedures: Special Stain Group I Surgery Specimen Level IV AFB Stain (control) GMS Stain (control) HEADER OPERATION: Needle core biopsy of left axilla lymph node PRE-OP DIAGNOSIS: Enlarged axillary lymph node TISSUE SUBMITTED: Left axillary lymph node MICROSCOPIC DIAGNOSIS Left axillary lymph node, core biopsy: Necrotizing granulomatous inflammation. Negative for acid fast bacilli and fungal organisms. No evidence of malignancy. See Comment. AM:dmitri 10/04/18 COMMENT The specimen is evaluated at the time of touch preps by Dr. Avila. Immediate Evaluation = Lymphocytes are noted. AFB and GMS stains with matched controls were used in the evaluation of this case and are negative for microorganisms. Immunohistochemistry ([id number]) supports the above diagnosis. There is no evidence of lymphoproliferative disorder. Case has been reviewed in consultation with Dr. Avila who concurs with the above diagnosis. IDC:CHEVY MICROSCOPIC DESCRIPTION Slides are reviewed. GROSS DESCRIPTION Received fresh labeled with the patient's name is a specimen designated left axillary lymph node. The specimen consists of multiple elongated fragments of hyatt soft tissue that in aggregate measure 3 x 1 x 0.1 cm. The specimen is totally submitted in one cassette. Email Administrator touch prep smears are prepared rapidly (2 stained with DQ and 2 stained with H & E). Tissue is saved for flow cytometry in case it is needed. The tissue is submitted in one cassette. / SJ:dmitri 10/03/18 The tissue saved for flow is submitted in cassette 2. / CHEVY:dmitri 10/04/18 TC:3 CPT: 86339, 62629, 68560 x2
[2018-10-03 15:04] VITALS: BMI 37.4
[2018-10-06 14:48] LABS: B. henselae IgG Negative titer (Neg:<1:320); B. henselae IgM Negative titer (Neg:<1:100); B. quintana IgG Negative titer (Neg:<1:320)
[2018-10-06 14:59] LABS: B. quintana IgM Negative titer (Neg:<1:100)
--- OUTSIDE RECORDS SUMMARY | 2018-11-19 22:47 | XMS RPT_ITS ---
:1965 Author Organization [place] Care Team Providers Name Role Phone Quoc Iglesias Attending Unavailable Parrish Ramos Referring Unavailable Quoc Iglesias Attending Unavailable Primay Care Physicia, No Primary Care Unavailable Quoc Iglesias Referring Unavailable Parrish Ramos Attending Unavailable Parrish Ramos Referring Unavailable Primay Care Physicia, No Primary Care Unavailable Quoc Iglesias Attending Unavailable Primay Care Physicia, No Referring Unavailable Calabretta, Quoc Attending Unavailable Maxabretta, Quoc Referring Unavailable Primay Care Physicia, No Primary Care Unavailable Calabretta, Quoc Attending Unavailable Calabretta, Quoc Referring Unavailable Primay Care Physicia, No Primary Care Unavailable Rachel, Parrish Boles Attending Unavailable Rachel, Parrish Boles Referring Unavailable Primay Care Physicia, No Primary Care Unavailable Rachel, Parrish Boles Attending Unavailable Rachel, Parrish Boles Referring Unavailable Primay Care Physicia, No Primary Care Unavailable Rachel, Parrish Boles Attending Unavailable Rachel, Parrish Boles Referring Unavailable Primay Care Physicia, No Primary Care Unavailable PROBLEMS PROBLEMS DATE TYPE CONDITION / CODE ATTENDING STATUS SOURCE 10/03/2018 Unknown R59.9 - Enlarged Cals[place]ino, Active Hanna lymph nodes, Quoc [facility] unspecified / Hospital R59.9(ICD-10) Repository PROCEDURES PROCEDURES No Procedure Records FoundRESULTS RESULTS EXT NON VASC Observed: 11/13/2018 Status: F Source: HANNA LIMITED/SOFT TISS 4:52 PM [facility] [place] Imaging Services [address] [place] [address] Ext Non Vasc Limited/Soft Tiss MR#: [id number] Acct: [id number] Name: MITESH CAMARA Rep #: [id number] : 1965 M 53 From: Jojo Marlwo MD PCP: Care Physician, No Primary Status: REG CLI Study: Ext Non Vasc Limited/Soft Tiss Date of Exam: 11/13/18 Exam# [id number] Ordering Dr: Quoc Iglesias MD STUDY: SUPERFICIAL ULTRASOUND - LEFT AXILLA REASON FOR EXAM: Male, 53 years old. Left axilla mass TECHNIQUE: A superficial ultrasound was performed with real- time and static angeles-scale imaging. COMPARISON: CT chest 09/28/2018. FINDINGS: There is a complex hypoechoic slightly lobular indistinct left axillary soft tissue mass with a slightly high pole echoic component seen to similar degree on CT measuring 1.6 x 1.8 x 1.3 cm. There are additional medial anterior and posterior lymph nodes as seen on CT which are small in size measuring less than 1 cm. US/Ext Non Vasc Limited/Soft Tiss IMPRESSION: Lobular hypoechoic lymph node/mass in the left axilla, smaller when compared to the previous examination, however still lobular in contour with indistinct contour and hypoechoic echotexture. Additional smaller lymph nodes are identified. Electronically Signed: Jojo Marlow MD at 5:57 EST , Service support , CC: No Primary Care Physician; Quoc Iglesias MD Computer Game Tester: Signed SURGERY VISIT REPORT Observed: 10/12/2018 Status: F Source: RENTZ 5:25 PM [facility] [address] [place] [address] [address] [place] [address] OFFICE VISIT Date of Service: 10/12/18 MR#: [id number] Acct: [id number] Name: MITESH CAMARA Rep #: [id number] : 1965 Provider: Quoc Iglesias MD Age/Sex: 52/M Location: [facility] Status: Signed Intake Vital Signs10/12/18 Body Mass Index (BMI) 37.4 Intake Visit Reasons: F/U ENLARGED LYMPH NODE PER LUIS ENRIQUE Chief Complaint: left axillary mass Carpenter Railcar Required: No Is patient in pain?: No Allergies No Known Allergies Allergy (Verified 10/12/18 14:38) Medications Antiarthritic Combination No.2 [Glucosamine-Chondroitin] 2 tab PO BID 08/11/17 [History Confirmed 10/12/18] azithromycin 250 mg tablet See Rx Instructions PO .COMPLEX #6 tab 10/03/18 [Rx Confirmed 10/12/18] meloxicam 7.5 mg tablet 7.5 mg PO DAILY 10/03/18 [History Confirmed 10/12/18] PFSH Medical History BPH (benign prostatic hyperplasia) (Acute) Back pain (Acute) Cancer of kidney (Acute) Osteoarthritis (Acute) Surgical History History of partial nephrectomy (Acute) Family History Mother Heart disease Cancer Social History Smoking Status: Current every day smoker how long ago did patient quit smokin years HPI HPI HPI: MITESH CAMARA, is a 52 M who presents to the office today for follow-up for left axillary adenopathy. The patient is doing well. He describes no fevers or chills in the last few days. He did take his full course of antibiotics. He says his left axilla is feeling better and the mass is shrinking. ROS General General: No weight change or fatigue Cardio Cardiovascular: No murmur, pacemaker or heart disease Psych Psychiatric: No depression Resp Respiratory: No sleep apnea, No shortness of breath Gastro Gastrointestinal: No abdominal pain, No acid reflux, No nausea or vomiting Arden Hematologic: No blood thinners Exam Const General: cooperative Orientation: alert, oriented x3 Resp Effort AND Inspection: normal respiratory effort Auscultation: clear to auscultation bilaterally Cardio Rate: regular rate Rhythm: regular rhythm Heart Sounds: no murmurs GI Inspection: non-distended Palpation: soft, nontender Musc Other: The left axillary region is softer and less swollen than when I saw him last week. There are no skin changes. Assessment AND Plan Problems 1. Enlarged lymph nodes in armpit R59.0 Plan 1. The patient had a core biopsy of left axillary lymph node which yielded normal lymphatic tissue and purulent material. I gave the patient a 5-day course of azithromycin which he has completed. There was no malignancy in the biopsy and he says that the adenopathy is improving with the antibiotics 2. I will repeat a CT with contrast of the chest in 1 month to check the adenopathy. If it is improving I will assume that this was infectious in nature. If it has not resolved I will perform an excisional biopsy of an axillary lymph node for histology. Cat scratch antibodies were negative. Quoc Iglesias MD Pager: [facility] [address] [place] [address], [address] [place] [address] Office: Orders Orders: Coding Level of Care Code Off vis,est,level 3 Diagnoses Enlarged lymph nodes in armpit R59.0 10/12/18 6860 <Electronically signed by Quoc Iglesias MD> Date Quoc Iglesias MD Cosigner Signature: Date (if applicable) CC: SURGERY VISIT REPORT Observed: 10/03/2018 Status: F Source: RENTZ 4:31 PM [facility] [address] [place] [address]. [address] [place] [address] OFFICE VISIT Date of Service: 10/03/18 MR#: [id number] Acct: [id number] Name: MITESH CAMARA Rep #: [id number] : 1965 Provider: Quoc Iglesias MD Age/Sex: 52/M Location: [facility] Status: Signed Intake Vital Signs10/03/18 Body Mass Index (BMI) 37.4 10/03/18 Height 6 ft 10/03/18 Weight: 236 lb 5 oz 10/03/18 Body Mass Index (BMI) 32.0 10/03/18 Blood Pressure 133/86 H Intake Visit Reasons: Lt Armpit Lump CT [facility] 09/28 Chief Complaint: left axillary mass Carpenter Railcar Required: No Is patient in pain?: No [...] well as a bandage. Biopsy Lymphnode Biopsy: 37255 Lymphnode w Needle Procedure Time Out Time [...] will call him later this week. Quoc Iglesias MD Pager: [facility] [address] [place] [address], [address] [place] [address] Office: Orders Orders: Medications New: azithromycin (Zithromax Z-Alexis) take 500 mg today (day 1), then 25 Florecita Pineda PA-C 0 mg for 4 days (days 2-5) PO 6 ta bs 0RF Coding Level of Care Code No Charge Diagnoses Enlarged lymph nodes in armt R59.0 Additional Codes Biopsy - Lymphnode Biopsy: 71947 Lymphnode w Needle (26323) Comment procedure 10/03/18 1631 <Electronically signed by Quoc Iglesias MD> Date Quoc Iglesias MD Cosigner Signature: Date (if applicable) CC: Parrish Ramos MD Observed: 10/03/2018 Status: F Source: HANNA CULTURE, DEEP WOUND 4:17 PM [facility] Gram Stain Gram Stain 3+ Red Blood Cells Rare White Blood Cells No organisms seen Wound Culture No growth aerobically. Cult, Anaerobic No anaerobic bacteria isolated. Performed By: #### M100.1500 #### [facility] [address] [place], [place], [address] CAT SCRATCH DISEASE Collected: 10/03/2018 Status: F Source: HANNA AB 3:21 PM [facility] [place] TYPE CODE TESTS RESULT OUT OF [...] developed and its performance characteristics determined by [facility]. It has not been cleared or approved by the Food and Drug Administration. The FDA has determined that such clearance or approval is not necessary. Performed at: [address] [id number] [employer] Thread Laster: Maribel Burton MD, Phone: [phone] Performed By: #### L7100.0100 #### [facility] (refer to report for specific site) refer to report for address and phone number AXILLARY NODE BIOPSY Observed: 10/03/2018 Status: F Source: HANNA 2:50 PM [facility] [place] Patient: MITESH CAMARA : 1965 (52/M) Acct Num: [id number] Phys: [address]els[address],Quoc Unit Num: [id number] Loc: [facility] Specimen: [id number] Received: 10/03/185 Spec Type: AX NODE BX TISSUES 1 TISSUES: Axillary lymph node, NOS COMMENT The specimen is evaluated at the time of touch preps by Dr. Avila. Immediate Evaluation = Lymphocytes are noted. AFB and GMS stains with matched controls were used in the evaluation of this case and are negative for microorganisms. Immunohistochemistry ([id number]) supports the above diagnosis. There is no evidence of lymphoproliferative disorder. Case has been reviewed in consultation with Dr. Avila who concurs with the above diagnosis. IDC:SJ GROSS DESCRIPTION Received fresh labeled with the patient's name is a specimen designated left axillary lymph node. The specimen consists of multiple elongated fragments of hyatt soft tissue that in aggregate measure 3 x 1 x 0.1 cm. The specimen is totally submitted in one cassette. Information Technology Assistant touch prep smears are prepared rapidly (2 stained with DQ and 2 stained with H AND E). Tissue is saved for flow cytometry in case it is needed. The tissue is submitted in one cassette. / SJ:dmitri 10/03/18 The tissue saved for flow is submitted in cassette 2. / :dmitri 10/04/18 TC:3 CPT: 82544, 97215, 78052 x2 HEADER OPERATION: Needle core biopsy of left axilla lymph node PRE-OP DIAGNOSIS: Enlarged axillary lymph node TISSUE SUBMITTED: Left axillary lymph node MICROSCOPIC DESCRIPTION Slides are reviewed. MICROSCOPIC DIAGNOSIS Left axillary lymph node, core biopsy: Necrotizing granulomatous inflammation. Negative for acid fast bacilli and fungal organisms. No evidence of malignancy. See Comment. AM:dmitri 10/04/18 Signed Tarik Mendosa, 10/06/18 <signature on file> Performed By: #### PAXNB #### [facility] [address] [place], [address] IMMUNOHISTOCHEMISTRY Observed: 10/03/2018 Status: F Source: RENTZ 12:00 AM [facility] Patient: MITESH CAMARA : 1965 (52/M) Acct Num: [id number] Phys: [address],Quoc Unit Num: [id number] Loc: [facility] Specimen: [id number] Received: 10/05/181031 Spec Type: IMMUNO TISSUES 1 TISSUES: Axillary lymph node, NOS SPECIMEN INFORMATION: Tissue Source: Left axillary lymph node Clinical Info: Enlarged axillary lymph node Specimen Number: [id number] CPT code: 86543, 60749 x6 METHODOLOGY: Deparaffinized sections of prefer/formalin-fixed tissue [...] developed and their performance characteristics determined by [facility]. They may not have been cleared or approved by the U.S. Food and Drug Administration. The FDA has determined that such clearance or approval is not necessary. INTERPRETATION: Left axillary lymph node, core biopsy: Polytypic lymphoid tissue. AM:dmitri 10/06/18 Comment: There is no evidence of lymphoproliferative disorder. PHYSICIAN AND INSTITUTION [place] [phone] Signed Tarik Mendosa, 10/06/18 <signature on file> Performed By: #### PIMM #### [facility] [address] [place] [address]. [place], [address] CHEST PA AND LATERAL Observed: 09/28/2018 Status: F Source: RENTZ 2:49 PM [facility] Imaging Services [address] [place] [address] Chest PA and Lateral MR#: [id number] Acct: [id number] Name: MITESH CAMARA Rep #: [id number] : 1965 M 52 From: Antione Cabrales MD PCP: Care Physician, No Primary Status: REG CLI Study: Chest PA and Lateral Date of Exam: 09/28/18 Exam# [id number] Ordering Dr: Parrish Ramos MD STUDY: X-RAY [...] No Primary Care Physician; Parrish Ramos MD Computer Game Tester: Signed CHEST WITH CONTRAST Observed: 09/28/2018 Status: F Source: RENTZ 2:44 PM [facility] [address] [place] [address] Chest WITH Contrast MR#: [id number] Acct: [id number] Name: MITESH CAMARA Rep #: [id number] : 1965 M 52 From: Phillip Penn MD PCP: Care Physician, No Primary Status: REG CLI Study: Chest WITH Contrast Date of Exam: 09/28/18 Exam# [id number] Ordering Dr: Parrish Ramos MD STUDY: CT [...] No Primary Care Physician; Parrish Ramos MD Computer Game Tester: Signed CT ABD/PELVIS W/WO Observed: 09/28/2018 Status: F Source: HANNA CONTRAST 2:44 PM [facility] Imaging Services [address] [place] [address] CT Abd/Pelvis W/WO Contrast MR#: [id number] Acct: [id number] Name: MITESH CAMARA Rep #: [id number] : 1965 M 52 From: Antione Cabrales MD PCP: Care Physician, No Primary Status: REG CLI Study: CT Abd/Pelvis W/WO Contrast Date of Exam: 09/28/18 Exam# [id number] Ordering Dr: Parrish Ramos MD STUDY: CT [...] No Primary Care Physician; Parrish Ramos MD Computer Game Tester: Signed CBC-COMPLETE BLOOD CNT Collected: 09/21/2018 Status: F Source: HANNA NO DIFF 4:35 PM [facility] [place] TYPE CODE TESTS RESULT OUT OF [...] MPV 8.8 Performed By: #### L100.0500 #### [facility] [address] [place], [address] COMPREHENSIVE METABOLIC Collected: 09/21/2018 Status: F Source: [facility] 4:35 PM [facility] TYPE CODE TESTS RESULT OUT OF [...] GAP 8 Performed By: #### L500.4050 #### [facility] [address] [place], [address] COMPREHENSIVE METABOLIC Collected: 03/21/2018 Status: F Source: [facility] 5:55 PM [facility] TYPE CODE TESTS RESULT OUT OF [...] GAP 9 Performed By: #### L500.4050 #### [facility] [address] [facility] [place], [address] CHEST PA AND LATERAL Observed: 03/21/2018 Status: F Source: RENTZ 5:29 PM [facility] Imaging Services [address] [place] [address] Chest PA and Lateral MR#: [id number] Acct: [id number] Name: MITESH CAMARA Rep #: [id number] : 1965 M 52 From: Maximo Davison DO PCP: Care Physician, No Primary Status: REG CLI Study: Chest PA and Lateral Date of Exam: 03/21/18 Exam# [id number] Ordering Dr: Parrish Ramos MD STUDY: X-RAY [...] examination of the chest. Electronically Signed: Maximo DO Saman at 22:23 EDT Tel [phone], Service support , CC: No Primary Care Physician; Parrish Ramos MD Computer Game Tester: Signed ABDOMEN/PELVIS WITH Observed: 02/22/2018 Status: F Source: RENTZ CONTRAST 12:57 PM [facility] Imaging Services [address] [place] [address] Abdomen/Pelvis WITH Contrast MR#: [id number] Acct: [id number] Name: MITESH CAMARA Rep #: [id number] : 1965 M 52 From: Saji Wong PCP: Care Physician, No Primary Status: REG CLI Study: Abdomen/Pelvis WITH Contrast Date of Exam: 02/22/18 Exam# [id number] Ordering Dr: Parrish Ramos MD STUDY: CT [...] Saji Wong DO at 17:40 EDT Tel [phone], Service support , CC: No Primary Care Physician; Parrish Ramos MD Computer Game Tester: Signed BASIC METABOLIC Collected: 02/22/2018 Status: F Source: HANNA PROFILE (BMP) 12:50 PM [facility] TYPE CODE TESTS RESULT OUT OF [...] GAP 7 Performed By: #### L500.2500 #### [facility] [address] [place], [address] ALLERGIES ALLERGIES DATE TYPE / CODE NAME / CODE REACTION SEVERITY SOURCE 10/12/2018 Drug No Known Unknown [facility] Allergy/4160 Allergies/F00 Hospital 20011(SNOMED 2818018(RXNOR Repository CT) M) ENCOUNTERS ENCOUNTERS ADMIT/DISCHARGE ACCOUNT ADMITTING ENCOUNTER LOCATION SOURCE NUMBER CLASS 11/13/2018 [id number] Ambulatory Hanna Hanna 3 [facility] ing:US Repository 11/13/2018 [id number] Ambulatory [place] 9 [facility] ing:CT Repository 10/12/2018/ [id number] Ambulatory BMSBuilding:B [place] 8 7 [facility] Repository 10/03/2018 [id number] Ambulatory Hanna [place] 0 [facility] ing:PAVLAB Repository 10/03/2018/ [id number] Ambulatory BMSBuilding:B [place] 8 2 [facility] Repository 09/28/2018 [id number] Ambulatory [place] 1 [facility] ing:CT Repository 09/21/2018 [id number] Ambulatory Hanna [place] 5 [facility] ing:LAB Repository 03/21/2018 [id number] Ambulatory Hanna [place] 2 [facility] ing:LAB Repository 02/22/2018 [id number] Ambulatory [place]anna [place] 8 [facility] ing:CT Repository PAYERS PAYERS ENCOUNTER GUARANTOR PAYER SUBSCRIBER SOURCE 11/13/2018 MITESH Seo Primary JAYLYN L [place] [id number] [address] [facility] y Number: [id number], [place] [id number] Repository [address]Iib: 330) Date:2101-37-32JD [phone] () [id number] [address]YQ: 11/13/2018 Secondary NOT GIVENUNK H[place] Insurance:SELF PAY [facility] Number: Effective Repository Date:2018-11-10 11/13/2018 EDAASHISH L Primary JAYLYN L [place] [id number] E Insurance:ANTHEMPolic SHEPPARDDOB: [facility] y Number: [id number], [place] [id number] Repository [address]Bfz: (330) Date:5375-05-58XL [phone] () [id number] [place] [address]CE: 11/13/2018 Secondary NOT GIVENUNK [place] Insurance:SELF PAY [facility] Number: Effective Repository Date:2018-10-20 10/12/2018 EDAASHISH L Primary JAYLYN L [place] [id number] E Insurance:ANTHEMPolic SHEPPARDDOB: [facility] y Number: [id number], [place] [id number] Repository [address]Lby: (330) Date:2792-43-81HT [phone] () [id number] [place] [address]CN: 10/12/2018 Secondary NOT GIVENUNK [place] Insurance:SELF PAY [facility] Number: Effective Repository Date:2018-10-12 10/03/2018 EDAASHISH L Primary JAYLYN L [place] [id number] E Insurance:ANTHEMPolic SHEPPARDDOB: [facility] y Number: [id number], [place] [id number] Repository [address]Vpi: (330) Date:9722-21-04DN [phone] () [id number], [place] [address]AA: 10/03/2018 Secondary NOT GIVENUNK H[place] Insurance:SELF PAY [facility] Number: Effective Repository Date:2018-10-03 10/03/2018 EDAASHISH L Primary JAYLYN L [place] [id number] [address] Insurance:ANTHEMPolic SHEPPARDDOB: [facility] y Number: [id number], [place] [id number] Repository [address]Lew: (330) Date:2210-67-51AA [phone] () [id number] METCALF [address]CC: 10/03/2018 Secondary NOT GIVENUNK [place] Insurance:SELF PAY [facility] Number: Effective Repository Date:2018-10-03 09/28/2018 EDAASHISH L Primary JAYLYN L [place] [id number] E Insurance:ANTHEMPolic SHEPPARDDOB: [facility] y Number: [id number], [place] [id number] Repository [address]Kjg: (330) Date:0061-26-83LR [phone] () ROSIBEL LUDWIG [address]TS: 09/28/2018 Secondary NOT GIVENUNK [place] Insurance:SELF PAY [facility] Number: Effective Repository Date:2018-09-21 09/21/2018 Edward L Primary Jaylyn L [place] [id number] E Insurance:ANTHEMPolic SheppardDOB: [facility] y Number: [id number], [place] [id number] Repository [address]Saf: (330) Date:8496-74-43GW [phone] () ROSIBEL LUDWIG [address]WC: 09/21/2018 Secondary NOT GIVENUNK H[place] Insurance:SELF PAY [facility] Number: Effective Repository Date:2018-09-21 03/21/2018 Edward L Primary Jaylyn L [place] [id number] E Insurance:ANTHEMPolic SheppardDOB: [facility] y Number: [id number], [place] [id number] Repository [address]Abo: (330) Date:5057-62-67PI [phone] () [id number] METCALF [address]HM: 03/21/2018 Secondary NOT GIVENUNK [place] Insurance:SELF PAY [facility] Number: Effective Repository Date:2018-03-21 02/22/2018 Edward L Primary Jaylyn L [place] [id number] E Insurance:ANTHEMPolic SheardDOB: [facility] Number: [id number], [place] [id number] Repository [address]Nfk: (330) Date:6304-38-31FW [phone] () [id number], [place] [address]EP: 02/22/2018 Secondary NOT GIVENUNK H[place] Insurance:SELF PAY [facility] Number: Effective Repository Date:2018-02-14
== END ==
PROVIDERS: Referring Provider Surgery; Visit Provider Surgery
DX: R59.0 Localized enlarged lymph nodes (principal)
CPT/HCPCS: 36415; 86611; 87070; 87075; 87205; 88305; 88312; 88341; 88342

== ENCOUNTER → 2018-11-13 16:49 | Outpatient (CLI) | payer BC, SELFPAY ==
[2018-10-12 14:39] VITALS: BMI 37.4
--- NOTE | 2018-11-13 16:52 | US_ITS ---
STUDY: SUPERFICIAL ULTRASOUND - LEFT AXILLA REASON FOR EXAM: Male, 53 years old. Left axilla mass TECHNIQUE: A superficial ultrasound was performed with real-time and static angeles-scale imaging. COMPARISON: CT chest 09/28/2018. FINDINGS: There is a complex hypoechoic slightly lobular indistinct left axillary soft tissue mass with a slightly high pole echoic component seen to similar degree on CT measuring 1.6 x 1.8 x 1.3 cm. There are additional medial anterior and posterior lymph nodes as seen on CT which are small in size measuring less than 1 cm. US/Ext Non Vasc Limited/Soft Tiss IMPRESSION: Lobular hypoechoic lymph node/mass in the left axilla, smaller when compared to the previous examination, however still lobular in contour with indistinct contour and hypoechoic echotexture. Additional smaller lymph nodes are identified. Electronically Signed: Jojo Marlow MD at 5:57 EST , Service support ,
--- OUTSIDE RECORDS SUMMARY | 2019-01-16 04:33 | XMS RPT_ITS ---
:1965 Author Organization [place] Support Name Relationship Address Phone SELF Unavailable Unavailable Unavailable CAMARA, JAYLYN Unavailable [address] + [place] [address] SELF Unavailable Unavailable Unavailable CAMARA, JAYLYN Unavailable [address] + [place] [address] SELF Unavailable Unavailable Unavailable CAMARA, JAYLYN Unavailable [address] + [place] [address] SELF Unavailable Unavailable Unavailable CAMARA, JAYLYN Unavailable [address] + [place] [address] SELF Unavailable Unavailable Unavailable CAMARA, JAYLYN Unavailable [address] + [place] [address] SELF Unavailable Unavailable Unavailable CAAMRA, JAYLYN Unavailable [address] + [place] [address] SELF Unavailable Unavailable Unavailable CAMARA, JAYLYN Unavailable [address] + [place] [address] SELF Unavailable Unavailable Unavailable CAMARA, JAYLYN Unavailable [address] + [place] [address] SELF Unavailable Unavailable Unavailable CAMARA, JAYLYN Unavailable [address] + [place] [address] SELF Unavailable Unavailable Unavailable CAMARA, JAYLYN Unavailable [address] + [place] [address] Care Team Providers Name Role Phone Quoc Iglesias Attending Unavailable Parrish Ramos Referring Unavailable Quoc Iglesias Attending Unavailable Primay Care Physicia, No Primary Care Unavailable Quoc Iglesias Referring Unavailable Quoc Iglesias Attending Unavailable Primay Care Physicia, No Referring Unavailable Calabretta, Quoc Attending Unavailable Calabretta, Quoc Referring Unavailable Primay Care Physicia, No Primary Care Unavailable Calabretta, Quoc Attending Unavailable Calabretta, Quoc Referring Unavailable Primay Care Physicia, No Primary Care Unavailable Calabretta, Quoc Attending Unavailable Primay Care Physicia, No Referring Unavailable Rachel, Umberto Attending Unavailable Rachel, Umberto Referring Unavailable Primay Care Physicia, No Primary Care Unavailable Rachel, Umberto Attending Unavailable Rachel, Umberto Referring Unavailable Primay Care Physicia, No Primary Care Unavailable Rachel, Umberto Attending Unavailable Rachel, Umbreto Referring Unavailable Primay Care Physicia, No Primary Care Unavailable Rachel, Umberto Attending Unavailable Rachel, Umberto Referring Unavailable Primay Care Physicia, No Primary Care Unavailable PROBLEMS PROBLEMS DATE TYPE CONDITION / CODE ATTENDING STATUS SOURCE 10/03/2018 Unknown R59.9 - Enlarged Calsantino, Active Hanna lymph nodes, Quoc [facility] unspecified / Hospital R59.9(ICD-10) Repository PROCEDURES PROCEDURES No Procedure Records FoundRESULTS RESULTS SURGERY VISIT REPORT Observed: 11/17/2018 Status: F Source: [place] 10:12 AM [facility] REPOSITORY [facility] [address] [place] [address] [address] [place] [address] OFFICE VISIT Date of Service: 11/16/18 MR#: [id number] Acct: [id number] Name: MITESH CAMARA Rep #: [id number] : 1965 Provider: Quoc Iglesias MD Age/Sex: 53/M Location: [facility] Status: Signed Intake Vital Signs11/16/18 Body Mass Index (BMI) 37.4 Intake Visit Reasons: F/U CT Results 11/13 Chief Complaint: US results... left axillary mass Search Marketing Coordinator Required: No Is patient in pain?: No Allergies No Known Allergies Allergy (Verified 11/16/18 14:05) Medications Antiarthritic Combination No.2 [Glucosamine-Chondroitin] 2 tab PO BID 08/11/17 [History Confirmed 10/12/18] azithromycin 250 mg tablet See Rx Instructions PO .COMPLEX #6 tab 10/03/18 [Rx Confirmed 10/12/18] meloxicam 7.5 mg tablet 7.5 mg PO DAILY 10/03/18 [History Confirmed 10/12/18] [facility] Medical History BPH (benign prostatic hyperplasia) (Acute) Back pain (Acute) Cancer of kidney (Acute) Osteoarthritis (Acute) Surgical History History of partial nephrectomy (Acute) Family History Mother Heart disease Cancer Social History Smoking Status: Current every day smoker how long ago did patient quit smokin years HPI HPI HPI: MITESH CAMARA, is a 53 M who presents to the office today for follow-up for left axillary enlarged lymph node. The patient reports he is feeling better with no palpable lymph node in the left axilla or pain. ROS General General: No weight change or fatigue Cardio Cardiovascular: No murmur, pacemaker, heart disease, [...] Const General: cooperative Orientation: alert, oriented x3 Chest Other: There is still some mild tenderness to palpation of the left axilla. Resp Effort AND Inspection: normal respiratory effort Auscultation: clear to auscultation bilaterally Cardio Rate: regular rate Rhythm: regular rhythm Heart Sounds: no murmurs GI Inspection: non-distended Palpation: soft, nontender Assessment AND Plan Problems 1. Enlarged lymph nodes in armpit R59.0 Plan 1. Patient had an enlarged axillary lymph node on CT scan. During biopsy of this the patient had copious purulent drainage. This was sent for culture at but did not grow anything. His cat scratch panel was negative as well. 2. I tried to repeat a CAT scan to compare but the insurance denied it. I performed an ultrasound and the patient's ultrasound was read that he was still having an enlarged lymph node with nodularity and irregular contour. Given the fact that the patient has irregular contoured lymph node I would recommend excisional biopsy of this. 3. I explained excisional biopsy to the patient in detail. I expand the risks including but not limited to bleeding, infection, lymphocele, seroma formation. The patient understands all the risks and is willing to proceed. Quoc Iglesias MD Pager: [facility] [address] [place] [address] [address] [place] [address] Office: Coding Level of Care Code Off vis,est,level 3 Diagnoses Enlarged lymph nodes in armpit R59.0 11/17/18 1012 <Electronically signed by Quoc Iglesias MD> Date Quoc Iglesias MD Cosigner Signature: Date (if applicable) CC: EXT NON VASC Observed: 11/13/2018 Status: F Source: [place] LIMITED/SOFT TISS 4:52 PM [facility] REPOSITORY [facility] Imaging Services [address] [place] [address] Ext Non Vasc Limited/Soft Tiss MR#: [id number] Acct: [id number] Name: MITESH CAMARA Rep #: [id number] : 1965 M 53 From: Jojo Marlow MD PCP: Care Physician, No Primary Status: REG CLI Study: Ext Non Vasc Limited/Soft Tiss Date of Exam: 11/13/18 Exam# [id number] Ordering Dr: Quoc Iglesias MD STUDY: SUPERFICIAL [...] No Primary Care Physician; Quoc Iglesias MD Extension Edger: Signed SURGERY VISIT REPORT Observed: 10/12/2018 Status: F Source: [place] 5:25 PM [facility] REPOSITORY [facility] [address] [place] [address] [address] [place] [address] OFFICE VISIT Date of Service: 10/12/18 MR#: [id number] Acct: [id number] Name: MITESH CAMARA Rep #: [id number] : 1965 Provider: Quoc Iglesias MD Age/Sex: 52/M Location: [facility] Status: Signed Intake Vital Signs10/12/18 Body Mass Index (BMI) 37.4 Intake Visit Reasons: F/U ENLARGED LYMPH NODE PER LUIS ENRIQUE Chief Complaint: left axillary mass Search Marketing Coordinator Required: No Is patient in pain?: No [...] antibodies were negative. Quoc Iglesias MD Pager: [facility] [address] [place] [address] [address] [place] [address] Office: Orders Orders: Coding Level of Care Code Off vis,est,level 3 Diagnoses Enlarged lymph nodes in armpit R59.0 10/12/18 1725 <Electronically signed by Quoc Iglesias MD> Date Quoc Iglesias MD Cosigner Signature: Date (if applicable) CC: SURGERY VISIT REPORT Observed: 10/03/2018 Status: F Source: [place]WELL 4:31 PM [facility] REPOSITORY [address] [place] [address] OFFICE VISIT Date of Service: 10/03/18 MR#: [id number] Acct: [id number] Name: MITESH CAMARA Gabbi Rep #: [id number] : 1965 Provider: Quoc Iglesias MD Age/Sex: 52/M Location: [facility] Status: Signed Intake Vital Signs10/03/18 Body Mass Index (BMI) 37.4 10/03/18 Height 6 ft 10/03/18 Weight: 236 lb 5 oz 10/03/18 Body Mass Index (BMI) 32.0 10/03/18 Blood Pressure 133/86 H Intake Visit Reasons: Lt Armpit Lump CT [facility] 09/28 Chief Complaint: left axillary mass Search Marketing Coordinator Required: No Is patient in pain?: No [...] well as a bandage. Biopsy Lymphnode Biopsy: 78776 Lymphnode w Needle Procedure Time Out Time [...] later this week. Quoc Iglesias MD Pager: [facility] [address] [place] [address], [address] [place] [address] Office: Orders Orders: Medications New: azithromycin (Zithromax Z-Alexis) take 500 mg today (day 1), then 25 Florecita Pineda PA-C 0 mg for 4 days (days 2-5) PO 6 ta bs 0RF Coding Level of Care Code No Charge Diagnoses Enlarged lymph nodes in armpit R59.0 Additional Codes Biopsy - Lymphnode Biopsy: 62598 Lymphnode w Needle (06621) Comment procedure 10/03/18 1631 <Electronically signed by Quoc Iglesias MD> Date Quoc Iglesias MD Cosigner Signature: Date (if applicable) CC: Parrish Ramos MD Observed: 10/03/2018 Status: F Source: [place] CULTURE, DEEP WOUND 4:17 PM [facility] REPOSITORY Gram Stain Gram Stain 3+ Red Blood Cells Rare White Blood Cells No organisms seen Wound Culture No growth aerobically. Cult, Anaerobic No anaerobic bacteria isolated. Performed By: #### M100.1500 #### [facility] [place], [address] CAT SCRATCH DISEASE Collected: 10/03/2018 Status: F Source: [place] AB 3:21 PM [facility] REPOSITORY TYPE CODE TESTS RESULT OUT OF [...] developed and its performance characteristics determined by [facility]. It has not been cleared or approved by the Food and Drug Administration. The FDA has determined that such clearance or approval is not necessary. Performed at: [facility] [id number] [place], [place] [id number] Neuropathologist: Maribel Burton MD, Phone: [phone] Performed By: #### L7100.0100 #### [facility] (refer to report for specific site) refer to report for address and phone number AXILLARY NODE BIOPSY Observed: 10/03/2018 Status: F Source: HANNA 2:50 PM [facility] REPOSITORY Patient: MITESH CAMARA : 1965 (52/M) Acct Num: [id number] Phys: [address],Quoc Unit Num: [id number] Loc: [facility] Specimen: [id number] Received: 10/03/181534 Spec Type: AX NODE BX TISSUES 1 TISSUES: Axillary lymph node, NOS COMMENT The specimen is evaluated at the time of touch preps by Dr. Avila. Immediate Evaluation = Lymphocytes are noted. AFB and GMS stains with matched controls were used in the evaluation of this case and are negative for microorganisms. Immunohistochemistry ([id number]) supports the above diagnosis. There is no [...] specimen is totally submitted in one cassette. Surg Physician Asst touch prep smears are prepared rapidly (2 stained with DQ and 2 stained with H AND E). Tissue is saved for flow cytometry in case it is needed. The tissue is submitted in one cassette. / CHEVY:dmitri 10/03/18 The tissue saved for flow is submitted in cassette 2. / CHEVY:dmitri 10/04/18 TC:3 CPT: 18712, 18712, 62659 x2 HEADER OPERATION: Needle core biopsy of left axilla lymph node PRE-OP DIAGNOSIS: Enlarged axillary lymph node TISSUE SUBMITTED: Left axillary lymph node MICROSCOPIC DESCRIPTION Slides are reviewed. MICROSCOPIC DIAGNOSIS Left axillary lymph node, core biopsy: Necrotizing granulomatous inflammation. Negative for acid fast bacilli and fungal organisms. No evidence of malignancy. See Comment. AM:dmitri 10/04/18 Signed Tarik Mendosa, DO 10/06/18 <signature on file> Performed By: #### PAXNB #### [facility] [address] [place] [address]. [place], [place], [id number] IMMUNOHISTOCHEMISTRY Observed: 10/03/2018 Status: F Source: [place] 12:00 AM [facility] REPOSITORY Patient: MITESH CAMARA : 1965 (52/M) Acct Num: [id number] Phys: [address],Quoc Unit Num: [id number] Loc: [facility] Specimen: [id number] Received: 10/05/181031 Spec Type: IMMUNO TISSUES 1 TISSUES: Axillary lymph node, NOS SPECIMEN INFORMATION: Tissue Source: Left axillary lymph node Clinical Info: Enlarged axillary lymph node Specimen Number: [id number] CPT code: 76155, 16114 x6 METHODOLOGY: Deparaffinized sections of prefer/formalin-fixed tissue [...] developed and their performance characteristics determined by [facility]. They may not have been cleared or approved by the U.S. Food and Drug Administration. The FDA has determined that such clearance or approval is not necessary. INTERPRETATION: Left axillary lymph node, core biopsy: Polytypic lymphoid tissue. AM:dmitri 10/06/18 Comment: There is no evidence of lymphoproliferative disorder. PHYSICIAN AND INSTITUTION [address] [address] Signed Tarikangel Mendosa DO 10/06/18 <signature on file> Performed By: #### PIMM #### [facility] [address] [place], [address] CHEST PA AND LATERAL Observed: 09/28/2018 Status: F Source: [place] 2:49 PM [facility] REPOSITORY [facility] Imaging Services [address] [place] [address] Chest PA and Lateral MR#: [id number] Acct: [id number] Name: MITESH CAMARA Rep #: [id number] : 1965 M 52 From: Antione Cabrales MD PCP: Care Physician, No Primary Status: REG CLI Study: Chest PA and Lateral Date of Exam: 09/28/18 Exam# [id number] Ordering Dr: Parrish Ramos MD STUDY: X-RAY [...] No Primary Care Physician; Parrish Ramos MD Extension Edger: Signed CHEST WITH CONTRAST Observed: 09/28/2018 Status: F Source: [place] 2:44 PM [facility] REPOSITORY [facility] Imaging Services [address] [place] [address] Chest WITH Contrast MR#: [id number] Acct: [id number] Name: MITESH CAMARA Rep #: [id number] : 1965 M 52 From: Phillip Penn MD PCP: Care Physician, No Primary Status: REG CLI Study: Chest WITH Contrast Date of Exam: 09/28/18 Exam# [id number] Ordering Dr: Parrish Ramos MD STUDY: CT [...] No Primary Care Physician; Parrish Ramos MD Extension Edger: Signed CT ABD/PELVIS W/WO Observed: 09/28/2018 Status: F Source: [place] CONTRAST 2:44 PM [facility] REPOSITORY [facility] Imaging Services [address] [place] [address] CT Abd/Pelvis W/WO Contrast MR#: [id number] Acct: [id number] Name: MITESH CAMARA Rep #: [id number] : 1965 M 52 From: Antione Cabrales MD PCP: Care Physician, No Primary Status: REG CLI Study: CT Abd/Pelvis W/WO Contrast Date of Exam: 09/28/18 Exam# [id number] Ordering Dr: Parrish Ramos MD STUDY: CT [...] No Primary Care Physician; Parrish Ramos MD Extension Edger: Signed CBC-COMPLETE BLOOD CNT Collected: 09/21/2018 Status: F Source: [place] NO DIFF 4:35 PM [facility] REPOSITORY TYPE CODE TESTS RESULT OUT OF [...] MPV 8.8 Performed By: #### L100.0500 #### [facility] [place], [address] COMPREHENSIVE METABOLIC Collected: 09/21/2018 Status: F Source: [place] PROFIL 4:35 PM [facility] REPOSITORY TYPE CODE TESTS RESULT OUT OF [...] GAP 8 Performed By: #### L500.4050 #### [facility] [address] [place], [address] COMPREHENSIVE METABOLIC Collected: 03/21/2018 Status: F Source: [facility] 5:55 PM [facility] REPOSITORY TYPE CODE TESTS RESULT OUT OF [...] GAP 9 Performed By: #### L500.4050 #### [facility] [address] [facility] [place], [place], [address] CHEST PA AND LATERAL Observed: 03/21/2018 Status: F Source: [place] 5:29 PM [facility] REPOSITORY [facility] Imaging Services [address] [place] [address] Chest PA and Lateral MR#: [id number] Acct: [id number] Name: MITESH CAMARA Gabbi Rep #: [id number] : 1965 M 52 From: Maximo Davison DO PCP: Care Physician, No Primary Status: REG CLI Study: Chest PA and Lateral Date of Exam: 03/21/18 Exam# [id number] Ordering Dr: Parrish Ramos MD STUDY: X-RAY [...] Maximo Davison DO at 22:23 EDT Tel [phone], Service support , CC: No Primary Care Physician; Parrish Ramos MD Extension Edger: Signed ABDOMEN/PELVIS WITH Observed: 02/22/2018 Status: F Source: [place] CONTRAST 12:57 PM [facility] REPOSITORY [facility] Imaging Services [address] [place] [address] Abdomen/Pelvis WITH Contrast MR#: [id number] Acct: [id number] Name: MITESH CAMARA Rep #: [id number] : 1965 M 52 From: Saji Wong DO PCP: Care Physician, No Primary Status: REG CLI Study: Abdomen/Pelvis WITH Contrast Date of Exam: 02/22/18 Exam# [id number] Ordering Dr: Parrish Ramos MD STUDY: CT [...] Saji Wong DO at 17:40 EDT Tel [phone], Service support , CC: No Primary Care Physician; Parrish Ramos MD Extension Edger: Signed BASIC METABOLIC Collected: 02/22/2018 Status: F Source: [place] PROFILE (BMP) 12:50 PM [facility] REPOSITORY TYPE CODE TESTS RESULT OUT OF [...] GAP 7 Performed By: #### L500.2500 #### [facility] [address] [place], [address] ALLERGIES ALLERGIES DATE TYPE / CODE NAME / CODE REACTION SEVERITY SOURCE 11/16/2018 Drug No Known Unknown [facility] Allergy/4160 Allergies/F00 Hospital 04317(SNOMED 0924219(RXNOR Repository CT) M) ENCOUNTERS ENCOUNTERS ADMIT/DISCHARGE ACCOUNT ADMITTING ENCOUNTER LOCATION SOURCE NUMBER CLASS 11/16/2018/ [id number] Ambulatory BMSBuilding:B [place] 9 7 [place].[facility] Repository 11/13/2018 [id number] Ambulatory [place] 3 [facility] ing:US Repository 11/13/2018 [id number] Ambulatory [place] 9 [facility] ing:CT Repository 10/12/2018/ [id number] Ambulatory BMSBuilding:B [place] 8 7 [place].[facility] Repository 10/03/2018 [id number] Ambulatory [place] 0 [facility] Hospital ing:PAVLAB Repository 10/03/2018/ [id number] Ambulatory BMSBuilding:B [place] 8 2 [place] Repository 09/28/2018 [id number] Ambulatory [place] 1 [facility] ing:CT Repository 09/21/2018 [id number] Ambulatory [place] 5 [facility] ing:LAB Repository 03/21/2018 [id number] Ambulatory [place] 2 [facility] ing:LAB Repository 02/22/2018 [id number] Ambulatory [place] 8 [facility] ing:CT Repository PAYERS PAYERS ENCOUNTER GUARANTOR PAYER SUBSCRIBER SOURCE 11/16/2018 MITESH Seo Primary JAYLYN L [place] [id number] Insurance:ANTHEMPolic SHEPPARDDOB: [facility] y [place]: [id number] [id number] Repository [address]Acl: (330) Date:7058-38-25AP [phone] () [id number], [place] [address]CD: 11/16/2018 Secondary NOT GIVENUNK [place] Insurance:SELF PAY [facility] Number: Effective Repository Date:2018-11-07 11/13/2018 MITESH Seo Primary JAYLYN L [place] [id number] Insurance:ANTHEMPolic SHEPPARDDOB: [facility] y Number: [id number] [id number] Repository [address]Qmg: (330) Date:4311-06-52ZG [phone] () 114[address]CYSVDNA, [place] [address]CD: 11/13/2018 Secondary NOT GIVENUNK [place] Insurance:SELF PAY [facility] Number: Effective Repository Date:2018-11-10 11/13/2018 MITESH Seo Primary JAYLYN L [place] [id number] Insurance:ANTHEMPolic SHEPPARDDOB: [facility] y Number: [id number] [id number] Repository [address]Cro: (330) Date:9488-23-54PH [phone] () [id number], [place] [address]DK: 11/13/2018 Secondary NOT GIVENUNK [place] Insurance:SELF PAY [facility] Number: Effective Repository Date:2018-10-20 10/12/2018 EDASHKAN Seo Primary JAYLYN L [place] [id number] Insurance:ANTHEMPolic SHEPPARDDOB: [facility] y Number: [id number] [id number] Repository [address]Jwc: (330) Date:0125-66-39WE [phone] () [id number], [place] [address]KD: 10/12/2018 Secondary NOT GIVENUNK [place] Insurance:SELF PAY [facility] Number: Effective Repository Date:2018-10-12 10/03/2018 EDWARD L Primary JAYLYN L [place] [id number] Insurance:ANTHEMPolic SHEPPARDDOB: [facility] y Number: [id number] [id number] Repository [address]Bun: (330) Date:2385-41-29XN [phone] () [id number], [place] [address]CU: 10/03/2018 Secondary NOT GIVENUNK [place] Insurance:SELF PAY [facility] Number: Effective Repository Date:2018-10-03 10/03/2018 EDWARD L Primary JAYLYN L [place] [id number] E Insurance:ANTHEMPolic SHEPPARDDOB: [facility] y Number: [id number] [id number] Repository [address]Czu: (330) Date:9831-92-37GE [phone] () [id number], [place] [address]UM: 10/03/2018 Secondary NOT GIVENUNK [place] Insurance:SELF PAY [facility] Hospital Number: Effective Repository Date:2018-10-03 09/28/2018 EDWARD L Primary JAYLYN L [place] [id number] [address] Insurance:ANTHEMPolic SHEPPARDDOB: [facility] y Number: [id number] [id number] Repository [address]Tbm: (330) Date:4599-47-78HB [phone] () [id number], [place] [address]XQ: 09/28/2018 Secondary NOT GIVENUNK H[place] Insurance:SELF PAY [facility] Hospital Number: Effective Repository Date:2018-09-21 09/21/2018 Edward L Primary Jaylyn L [place] [id number] [address] Insurance:ANTHEMPolic SheppardDOB: [facility] y Number: [id number], [place] [id number] Repository [address]Stw: (330) Date:8487-19-78GQ [phone] () ROSIBEL LUDWIG [address]EP: 09/21/2018 Secondary NOT GIVENUNK H[place] Insurance:SELF PAY [facility] Number: Effective Repository Date:2018-09-21 03/21/2018 Edashkan L Primary Jaylyn L [place] [id number] E Insurance:ANTHEMPolic SheppardDOB: [facility] y Number: [id number], [place] [id number] Repository [address]Ewg: (330) Date:5976-41-39AU [phone] () ROSIBEL LUDWIG [address]ZB: 03/21/2018 Secondary NOT GIVENUNK [place] Insurance:SELF PAY [facility] Number: Effective Repository Date:2018-03-21 02/22/2018 Edashkan L Primary Jaylyn L [place] [id number] E Insurance:ANTHEMPolic SheppardDOB: [facility] y Number: [id number], [place] [id number] Repository [address]Htx: (330) Date:5463-73-76YN [phone] () ROSIBEL LUDWIG [address]UE: 02/22/2018 Secondary NOT GIVENUNK [place] Insurance:SELF PAY [facility] Number: Effective Repository Date:2018-02-14
== END ==
PROVIDERS: Referring Provider Surgery; Visit Provider Surgery
DX: R59.0 Localized enlarged lymph nodes (principal)
CPT/HCPCS: 76882

== ENCOUNTER 2018-11-23 06:08 | Day surgery (SDC) | payer BC, SELFPAY ==
[2018-11-16 14:05] VITALS: BMI 37.4
--- NOTE | 2018-11-23 | IMM_PTH ---
PATIENT: MITESH CAMARA [place] [facility] [place][id number] AGE/SX: 53/M ROOM: RE11/23/[address]: Dr. Quoc Iglesias MD : 1965 BED: DIS: 11/23/2018 SPEC #: [id number] RECD: 11/24/18 11:14 STATUS: BRIDGET REGuille #: [id number] CARY: 11/23/18 00:[address]: Quoc Iglesias DEPT: IMMUNOHISTOCHEMISTRY RECD BY: Milena Wayne ENTERED: 11/24/18 11:15 SP TYPE: IMMUNO OTHR DR: No Primary Care Phys Tissues: Axillary lymph node, NOS Procedures: CD138 (add) CD20 (add) CD3 (add) CD43 (add) CD45 (add) CD5 (add) CD79A (add) MACRO (add) Vimentin (add) Pankeratin (initial) PHYSICIAN & INSTITUTION [place] [address] SPECIMEN INFORMATION: Tissue Source: Left axillary lymph node Clinical Info: Enlarged lymph nodes, left axilla Specimen Number: [id number] #4 CPT code: 03956, 60223 x9 METHODOLOGY: Deparaffinized sections of prefer/formalin-fixed tissue or PAP/DQ stained slides are incubated with monoclonal/polyclonal antibodies/oligonucleotide probes. Localization is made via biotin free immunoperoxidase method. Appropriate controls are performed and reacted as expected. Results on target cell population are indicated in the following table: RESULTS: ANTIBODY / CLONE RESULT Block 4 AE1-3 (AE1/AE3/PCK26) negative CD3 (PS1) positive CD5 (SP10) positive CD20 (L26) positive CD43 (L60) positive CD45 (RP2/18) positive CD79a (11E3) positive CD138 (B-A38) positive Vimentin (V9) negative Macro (HAM-56) positive, focal These tests were developed and their performance characteristics determined by [facility]. They may not have been cleared or approved by the U.S. Food and Drug Administration. The FDA has determined that such clearance or approval is not necessary. INTERPRETATION: Left axillary lymph node, biopsy: Consistent with reactive lymph node with granulomatous inflammation. AM:dmitri 11/27/18
[2018-11-23 06:46] VITALS: BP 108/66; PULSE 66; RESP 16; TEMP 36.6; O2SAT 99; BMI 32.8
[2018-11-23] MEDS: Cefazolin 2 GM in 0.9% Normal Saline 100 ML IV (07:25)
--- NOTE | 2018-11-23 07:30 | LYM_PTH ---
PATIENT: MITESH CAMARA LOC: [facility] – [place] U#:[id number] AGE/SX: 53/M ROOM: RE11/23/[address]: Dr. Quoc Iglesias MD : [id number] BED: DIS: 11/23/2018 SPEC #: [id number] RECD: 11/23/18 10:02 STATUS: BRIDGET FRANTZ #: [id number] CARY: 11/23/18 07:[address]: Quoc Iglesias DEPT: SURGICAL PATHOLOGY RECD BY: Gabriele Moeller ENTERED: 11/23/18 10:05 SP TYPE: LYM NODES OTHR DR: No Primary Care Phys Tissues: Lymph node, NOS Procedures: Special Stain Group I Surgery Specimen Level IV AFB Stain (control) GMS Stain (control) Diff Quik Stain (control) H & E (control) HEADER OPERATION: Excision lymph node, axilla PRE-OP DIAGNOSIS: Enlarged lymph nodes, left axilla TISSUE SUBMITTED: Left axillary lymph node, sent fresh MICROSCOPIC DIAGNOSIS Left axillary sentinel lymph node, excision: Necrotizing granulomatous inflammation. Black pigment dye of exogenous origin. No evidence of lymphoproliferative disorder. See microscopic description and comment. AM:dmitri 11/24/18 COMMENT Flow cytometry analysis and immunohistochemistry ([id number]) supports the above diagnosis. Special stains, AFB and GMS, for microorganisms are negative; matched controls are appropriate. Complete FLOW report is viewable in [employer]'s EMR. Reference is made to the patient's previous left axillary lymph node, core biopsy from 10/04/18 ([id number]) in which necrotizing granulomatous inflammation was identified. MICROSCOPIC DESCRIPTION Slides are reviewed. Sections show caseating granulomatous inflammation. Also present within the lymph node is black dye pigment consistent with dye of exogenous origin. Clinical correlation is suggested. GROSS DESCRIPTION Received fresh labeled with the patient's name is a specimen designated left axillary lymph node. The specimen consists of an irregular fragment of yellow fatty tissue measuring 5 x 3 x 1.2 cm. The specimen is serially sectioned. Bee Keeper touch preps are prepared. Bee Keeper portions are submitted for flow cytometry analysis. The remainder of the specimen is sectioned and totally submitted in five cassettes. / INNA:dmitri 11/23/18 TC:2 CPT: 64372, 74042 x2
[2018-11-23] MEDS: Bupiv/Epi 0.25% 30 ML Vial (07:58)
--- NOTE | 2018-11-23 08:07 | PCM.OPRPT ---
Problem List (1) Mass of left axilla Status: Acute Report of Operation Date of Procedure: 11/23/18 Pre-Operative Diagnosis: Left axillary mass Post-Operative Diagnosis: Same Surgery/Procedure Performed:: Excisional biopsy of left axillary mass, deep Description of Surgical Findings:: Patient had deep axillary mass which was excised. It measured approximately 4 cm. Specimen's removed: Left axillary mass Description of Procedure: The patient was brought back to the operating room and general anesthesia was induced. The left axilla was prepped and draped in the usual sterile fashion. Ultrasound was used to localize the mass and a skin incision marking was made. This was anesthetized with Marcaine and then a skin incision was made and deepened to the axillary fascia with electrocautery. The axillary fascia was opened and then the mass was palpated and grasped with an Allis clamp and retracted. Next the mass was circumferentially dissected and removed. Electrocautery was used to obtain hemostasis and the cavity was irrigated and suctioned. Next the deep axillary fascia was closed with interrupted 3-0 Vicryl sutures. The deep dermal was closed with interrupted 3-0 Vicryl sutures. The skin was closed with a running 4-0 Monocryl. Next Dermabond was applied. The patient was taken to PACU in stable condition. The patient tolerated the procedure well. Needle and sponge counts were correct at the end of the case. - Admit VTE Documentation VTE Mechan Device Prophylaxis: SCD's
--- NOTE | 2018-11-23 08:10 | PCM.DC.BS ---
Discharge Diet: No Restrictions Discharge Activity: May Not Drive - for 2-3 days or while taking narcotic pain meds., May Shower - tomorrow May shower in (days): 1 Lifting Restrictions: 10 pounds for 1 week. Call your doctor if your incision/area has: Continuous Slow Oozing, Sudden Increased Bleeding, Increased Pain/ Swelling, Increased Redness, Foul Smelling Discharge, Swelling at the incision site Call your doctor if you observe: Fever of 101 or Higher Suture Line Care: Avoid Pulling/Pushing, Avoid Pinching/Bending Cleanse incision/area with: Soap & Water Allergies/Adverse Reactions: Allergies No Known Allergies Allergy (Verified 11/23/18 06:45) Medications to take at Discharge meloxicam 7.5 mg tablet 7.5 mg PO DAILY 10/03/18 Oxycodone HCl/Acetaminophen [Percocet 5/325] 1 - 2 tablet PO Q4H PRN PRN 7 Days #20 tablet 11/23/18 The following prescriptions were given: Oxycodone HCl/Acetaminophen [Percocet 5/325] 1 - 2 tablet PO Q4H PRN PRN 7 Days #20 tablet PRN Reason: Pain Primary Care Physician: Care Physician,No Primary [Primary Care Provider] - Please Follow Up With: Quoc Iglesias MD When: Please call to schedule 2 week follow up appointment. [phone]
[2018-11-23 08:16] VITALS: BP 108/66; BP 117/64; PULSE 88; RESP 16; TEMP 36.7; O2SAT 93
[2018-11-23 08:30] VITALS: BP 108/66; BP 122/82; PULSE 84; RESP 16; O2SAT 94
[2018-11-23 08:44] VITALS: BP 108/66; BP 120/83; PULSE 80; RESP 16; TEMP 36.2; O2SAT 94
[2018-11-23 09:30] VITALS: BP 108/66; BP 121/83; PULSE 82; RESP 16; TEMP 36.2; O2SAT 95
== END 2018-11-23 09:41 | disposition home or self-care (01) ==
LOC: SDC 06:09 → AC 06:10
PROVIDERS: Referring Provider Surgery; Visit Provider Surgery
PROC: (CPT 38500; principal; 2018-11-23 07:15)
DX: R59.0 Localized enlarged lymph nodes (principal); N40.0 Benign prostatic hyperplasia without lower urinary tract symptoms; M19.90 Unspecified osteoarthritis, unspecified site; M54.9 Dorsalgia, unspecified; K21.9 Gastro-esophageal reflux disease without esophagitis; F17.200 Nicotine dependence, unspecified, uncomplicated; Z79.899 Other long term (current) drug therapy; Z85.528 Personal history of other malignant neoplasm of kidney; Z90.5 Acquired absence of kidney
CPT/HCPCS: 38525; 88305; 88312; 88341; 88342; J7120; J2405

== ENCOUNTER 2019-01-08 18:00 | Outpatient (RCR) | payer BC, SELFPAY ==
[2018-11-30 10:51] VITALS: BMI 32.8
--- NOTE | 2018-12-19 10:52 | HP.OTEVAL_ITS ---
Patient's Visit Information MITESH CAMARA is a 53 year old M, referred to Occupational Therapy by Quoc Iglesias MD, with a diagnosis of lymphedema/ axillary web syndrom. Date of Evaluation: 12/19/18 Occupational Therapist: EUNICE Joiner/Gabbi, CHT - Subjective Subjective: pt states he had lymph node removed on 11/23/18. pt has some issues axillary cord noted from axillary working distally to elbow. pt states he did develop a large mass following sx that he iced and it went away. pt states now the cord like tissue is not painful but he feels a pulling sensation which is uncomfortable. Pt would like to know what he can do to mtg and resolve this. - Lymphedema (Circumferential Measure) MCP: right 23.5cm left 24.5cm Wrist: right 19.5cm left 19.5cm Lower forearm: right 29cm left 31cm Largest forearm: right 33cm left 34cm Elbow: right 32.5 left 33cm Largest humerus: right 33.5cm left 34cm Axcillary: right 39.5cm left 38cm Upper Exremity Comments: pt demo with left UE tissue cording with shoulder external rotation. - Sensation Sensation Comments: denies - Quick DASH-Disab of Arm,Shoulder& Hand Quick DASH Score: 23.3325 - Goals Demonstrate adequate knowledge of self-massage by 2nd week: Yes Demonstrate adequate knowledge skin care/prec by 2nd week: Yes Demonstrate adequate knowledge therapeutic exercises by d/c: Yes Goal: Patient will report: a decrease in tingling/sensation with end range of left shoulder external rotation Goal:: pt will demo understanding of scar mtg by end of 2nd session - Rehabilitation General Assessment: Therapist noted with visual assessment with shoulder exteranl rotation cord like tissue from incision region to elbow- With palpation noted scar hytrophy and adhesions at this time- incision area pulls down with superficial skin is pulled toward elbow-pt states he went to the dr on 12/14/18. PT would benefit from skilled OT services 1x week for 4 weeks to ed. pt on scar mtg, left UE stretching, and manula lymph drainage massage. Today pt was ed on ROM stretching, scar mtg and manual lyph dranage massage. pt demo understanding and is agreeable to treatment plan. Rehabilitation Potential: Good - Anticipated Interventions Anticipated Interventions: Scar Care, Triggerpoint Release, Modalities - Visit Plan Frequency: 1x/Week Duration: 3 Weeks TEXT: Thank you for the opportunity to evaluate your patient. For Medicare and Medicare HMO plans, please review the plan of care and approve it. It will need to be FAXED BACK to us at [phone] for Medicare purposes. Please let me know if there are questions or concerns regarding this plan of care. Physician Signature: Date:
--- NOTE | 2019-02-14 14:12 | HP.OTDCSUM ---
HP - OT D/C Summary It has been my pleasure to treat MITESH CAMARA under orders from Quoc Iglesias MD, for the diagnosis of lymphedema/ axillary web syndrom for a total of 3 visit(s). Please see the following information for a summary of their discharge status. - Objective Objective/Function: pt cont to have thick scar adhesion to left axillary region- left forearm noted to be 2 cm larger than right at this time- - Goals Patient Goals: Regain Mobility, Use Hand/Wrist/Arm Normally Again, Decrease Tingling/Numbness, Decrease Sensitivity Other: decrease tightness with end range of left shoulder ROM Demonstrate adequate knowledge of self-massage by 2nd week: Yes Demonstrate adequate knowledge skin care/prec by 2nd week: Yes Demonstrate adequate knowledge therapeutic exercises by d/c: Yes Goal: Patient will report: a decrease in tingling/sensation with end range of left shoulder external rotation Goal:: pt will demo understanding of scar mtg by end of 2nd session - Plan Plan: cont with new measurments. MLD review - possible use of compression sleeve to assist with fluid circulation of left UE - D/C Information If there are questions or concerns regarding this patient's occupational therapy, please fell free to call me at [phone]. Thank you for the referral of this patient. Sincerely, Luz Marina Dietrich, NAVR/L, CHT
== END 2019-01-08 19:00 | disposition home or self-care (01) ==
LOC: OT 18:00
PROVIDERS: Referring Provider Surgery; Visit Provider Surgery
DX: I89.0 Lymphedema, not elsewhere classified (principal)
CPT/HCPCS: 97140; 97166

== ENCOUNTER → 2019-03-14 17:13 | Outpatient (CLI) | payer BC, SELFPAY ==
[2018-11-30 10:51] VITALS: BMI 32.8
[2019-03-07 09:45] LABS: Hematocrit 43.7 % (40-54); Mean Corp Hgb Conc 34.3 g/gl (32-36); Mean Corpuscular Hgb 26.8 pg (27.0-32.0); Mean Platelet Vol. 10.3 fl (6.2-12.0); Platelet Count 198 K/mm3 (150-450); RBC Distribution Width CV 13.4 % (11.6-14.6); RBC Distribution Width SD 37.3 fl (35.1-43.9); White Blood Count 7.2 K/mm3 (4.4-11.0)
[2019-03-07 09:46] LABS: Scan Indicated on CBC? Y/N NO
[2019-03-07 10:07] LABS: Anion Gap 5 (5-15); BUN 16 mg/dL (7-18); BUN/Creat Ratio 15.2 RATIO (10-20); Calcium,Total 8.8 mg/dL (8.5-10.1); Chloride 108 mmol/L (98-107); Creatinine, Serum 1.05 mg/dL (0.70-1.30); EST Glomerular Filtration Rate 79 mL/min (>60); Est Glom Filt Rate - Afr Amer 96 mL/min (>60); Glucose 98 mg/dL (74-106); Potassium 4.6 mmol/L (3.5-5.1); Sodium Level 141 mmol/L (136-145)
--- NOTE | 2019-03-14 17:16 | CT_ITS ---
STUDY: CT ABDOMEN AND PELVIS WITH AND WITHOUT CONTRAST REASON FOR EXAM: Male, 53 years old. Renal cancer. Partial nephrectomy RADIATION DOSAGE (If Supplied By Facility): CTDIvol = ( 23.76 ) mGy, DLP = ( 3043.37 ) mGycm TECHNIQUE: Transaxial images were obtained from the dome of the diaphragm to the symphysis pubis without oral contrast. 100CC IV Isovue 300 was administered. Sagittal and coronal images were reconstructed. Individualized dose optimization techniques were used for this CT. COMPARISON: September 28, 2018 and July 01, 2017 FINDINGS: The visualized lung bases are unremarkable. The visualized portions of the heart are within normal limits. There is hepatomegaly with diffuse hepatic enlargement. Normal gallbladder and extrahepatic biliary system. There is mild splenomegaly. Normal pancreas. Normal bilateral adrenal glands. There is postoperative change at the lower pole of the right kidney. Normal left kidney. There is no hydronephrosis. Normal visualized stomach. Normal small intestine. Normal colon. The appendix is visualized and appears normal. There is atherosclerotic calcification of the abdominal aorta, without a demonstrated aneurysm. Normal inferior vena cava. Normal retroperitoneum. Normal urinary bladder. There are prostatic calcifications. There is no free fluid in the abdomen or pelvis. Normal abdominal wall. There is levoscoliosis with degenerative changes of the spine. CT/CT Abd/Pelvis W/WO Contrast IMPRESSION: Postoperative changes of the right kidney. No mass or hydronephrosis. Hepatosplenomegaly. Electronically Signed: Maycol Benítez MD at 21:56 EDT , Service support ,
--- NOTE | 2019-03-14 17:55 | RAD_ITS ---
STUDY: X-RAY CHEST REASON FOR EXAM: Male, 53 years old. Right kidney carcinoma TECHNIQUE: PA and 2 lateral views of the chest. COMPARISON: 09/28/2018 FINDINGS: The lungs are clear and expanded. There is no demonstrated pleural abnormality. Normal size heart. Normal mediastinum and jelena. Normal visualized pulmonary arteries. Normal visualized aortic arch and descending thoracic aorta. Normal visualized thoracic spine. Normal visualized ribs, clavicles, and shoulders. There is no demonstrated abnormality of the visualized soft tissue structures of the upper abdomen. RAD/Chest PA and Lateral IMPRESSION: No acute pulmonary process Electronically Signed: Addy Matthews MD at 13:00 EDT , Service support ,
== END ==
PROVIDERS: Referring Provider Urology; Visit Provider Urology
DX: C64.1 Malignant neoplasm of right kidney, except renal pelvis (principal)
CPT/HCPCS: 36415; 71046; 74178; 80048; 85027; Q9967

== ENCOUNTER → 2019-09-27 14:40 | Outpatient (CLI) | payer BC, SELFPAY ==
[2018-11-30 10:51] VITALS: BMI 32.8
--- NOTE | 2019-09-27 14:52 | RAD_ITS ---
HISTORY: RENAL CANCER ADDITIONAL HISTORY: None provided. COMPARISON: 03/14/2019 TECHNIQUE: Frontal and lateral chest radiographs. Number of images including paperwork: 3 FINDINGS: LUNGS AND PLEURA: No consolidation, mass or pleural effusion. CARDIAC SILHOUETTE: Unremarkable. MEDIASTINUM AND MAX: Unremarkable. UPPER ABDOMEN: Unremarkable. SKELETON AND SOFT TISSUES: No acute findings. OTHER DEVICES AND HARDWARE: None. RAD/Chest PA and Lateral IMPRESSION: No acute cardiopulmonary abnormality. at 0114 Reported and signed by: Antionette Singh MD Electronically Signed: Antionette Singh MD at 1:14 EST Tel , Service support ,
[2019-09-27 16:01] LABS: Hematocrit 47.2 % (40-54); Hemoglobin 15.5 g/dL (13.0-16.5); Mean Corp Hgb Conc 32.8 g/dL (32-36); Mean Corpuscular Hgb 26.7 pg (27.0-32.0); Mean Corpuscular Volume 81.2 fL (80-94); Platelet Count 198 K/mm3 (150-450); RBC Distribution Width CV 13.2 % (11.6-14.6); RBC Distribution Width SD 38.5 fl (35.1-43.9); Red Blood Count 5.81 M/mm3 (4.6-6.2); White Blood Count 8.6 K/mm3 (4.4-11.0)
[2019-09-27 16:30] LABS: ALB/GLOB Ratio 1.1 RATIO (0.9-2.4); AST(SGOT) 19 U/L (15-37); Alanine Aminotransfer ALT/SGPT 43 U/L (16-61); Albumin, Serum 4.1 g/dL (3.2-5.0); Alkaline Phosphatase 59 U/L (45-117); Anion Gap 4 (5-15); BUN 14 mg/dL (7-18); BUN/Creat Ratio 13.5 RATIO (10-20); Chloride 104 mmol/L (98-107); Creatinine, Serum 1.04 mg/dL (0.70-1.30); EST Glomerular Filtration Rate 80 mL/min (>60); Est Glom Filt Rate - Afr Amer 97 mL/min (>60); Globulin 3.7 g/dL (2.2-4.2); Glucose 76 mg/dL (74-106); Potassium 3.7 mmol/L (3.5-5.1); Protein, Total 7.8 g/dL (6.4-8.2); Sodium Level 138 mmol/L (136-145)
== END ==
PROVIDERS: Referring Provider Urology; Visit Provider Urology
DX: C64.9 Malignant neoplasm of unspecified kidney, except renal pelvis (principal)
CPT/HCPCS: 36415; 71046; 80053; 85027

== ENCOUNTER → 2020-01-24 09:29 | Outpatient (CLI) | payer BC, SELFPAY ==
[2018-11-30 10:51] VITALS: BMI 32.8
[2020-01-24 10:09] LABS: Anion Gap 7 (5-15); BUN 15 mg/dL (7-18); BUN/Creat Ratio 14.7 RATIO (10-20); Calcium,Total 8.8 mg/dL (8.5-10.1); Chloride 102 mmol/L (98-107); Cholesterol 258 mg/dL (200); Creatinine, Serum 1.02 mg/dL (0.70-1.30); EST Glomerular Filtration Rate 81 mL/min (>60); Est Glom Filt Rate - Afr Amer 99 mL/min (>60); Glucose 105 mg/dL (74-106); High Density Lipoprotein 31 mg/dL; Potassium 4.3 mmol/L (3.5-5.1); Sodium Level 138 mmol/L (136-145); Triglycerides 593 mg/dL
[2020-01-24 10:56] LABS: Vitamin D,25 Hydroxy 11.3 ng/mL
== END ==
PROVIDERS: PCP Family Medicine; Referring Provider Family Medicine; Visit Provider Family Medicine
DX: Z00.00 Encounter for general adult medical examination without abnormal findings (principal)
CPT/HCPCS: 36415; 80048; 80061; 82306

== ENCOUNTER 2020-04-01 19:48 | Emergency (ER) | payer BC, SELFPAY ==
[2018-11-30 10:51] VITALS: BMI 32.8
[2020-04-01 19:49] VITALS: BP 120/78; PULSE 127; RESP 20; TEMP 35.9; O2SAT 97; BMI 32.8
--- NOTE | 2020-04-01 20:10 | EKG12_ITS ---
Test Reason : GI BLEED Blood Pressure : / mmHG Vent. Rate : 117 BPM Atrial Rate : 117 BPM P-R Int : 156 ms QRS Dur : 090 ms QT Int : 322 ms P-R-T Axes : 064 051 040 degrees QTc Int : 449 ms Sinus tachycardia Otherwise normal ECG Confirmed by BRINA WILSON ([id number]), rewrite editor SOLO RANDHAWA ([id number]) on 04/03/2020 7:23:24 AM Referred By: DC Confirmed By:BRINA WILSON
--- NOTE | 2020-04-01 20:18 | ED.DCSUM_ITS ---
- ER Visit Summary Date of Service: 04/01/20 Chief Complaint: GI bleed History of Present Illness: The patient is a 54 M who is postop day 5 for screening colonoscopy by Dr. Reyna. Patient said the scope went well except he had a large polyp which was banded for bleeding. He had some bleeding yesterday and he spoke with his endoscopist. He was advised to come to the ED if it got worse. He had continued bleeding today with 2 large episodes of bright red blood. So, he presented to the ED. He also reports shortness of breath with exertion today. Denies chest pain, cough, fever, sputum, or any other symptoms. He does not take blood thinners. Physical Examination: Afebrile and vital signs unremarkable except for heart rate of 127. Patient nontoxic and in no acute distress. Heart is tachycardic. No respiratory distress. Abdomen soft and nontender. Skin appears normal. Test Results: EKG, labs, type and screen pending. Emergency Department Course and Treatment: Patient will be placed on the monitor. IV access. Work-up as above. I attempted to call his endoscopist, but he is out of town the rest of the week. I spoke with a doctor on-call for him who advised referral to surgery here or transfer if needed. Hemoglobin and coags were normal. Because of his shortness of breath, I did check chest x-ray, EKG, troponin, BNP, d-dimer. These were all unremarkable. Patient had 6 additional bright red bowel movements while in the ED. He remained hemodynamically stable with good mentation. I spoke with surgery semiconductor dies loader at this facility who advised transfer to a tertiary care center. Patient w as accepted at [facility] by Dr. Church to the ICU. Treatment Plan: As above Disposition: Transfer Impression: GI bleed This note was generated with [employer] dictation software. It may contain incorrect words, spelling, and punctuation that were not noted in review of the chart prior to signing ED Disposition - Plan for ED Patient: Referrals: Chaitanya Higuera [Primary Care Provider] -
[2020-04-01 20:24] LABS: Absolute Neutrophil Count 8.3 X10^3/uL (2.0-7.7); Basophil# 0.09 X10^3/uL; Basophil% 0.8 % (0-1); Eosinophil# 0.05 X10^3/uL; Eosinophils% 0.4 % (0-5); Hematocrit 39.6 % (40-54); Hemoglobin 13.3 g/dL (13.0-16.5); Lymphocyte % 20.9 % (19-41); Mean Corp Hgb Conc 33.6 g/dL (32-36); Mean Corpuscular Hgb 27.2 pg (27.0-32.0); Mean Platelet Vol. 9.7 fl (6.2-12.0); Monocyte# 0.65 X10^3/uL; Monocyte% 5.7 % (0-10); NRBC Flagged by Analyzer 0 % (0-5); Neutrophil # 8.25 X10^3/uL (2.7-7.7); Neutrophil % 71.8 % (47-70); Platelet Count 256 K/mm3 (150-450); RBC Distribution Width CV 12.8 % (11.6-14.6); RBC Distribution Width SD 36.6 fl (35.1-43.9); Red Blood Count 4.89 M/mm3 (4.6-6.2); White Blood Count 11.5 K/mm3 (4.4-11.0)
[2020-04-01 20:46] LABS: AST(SGOT) 23 U/L (15-37); Alanine Aminotransfer ALT/SGPT 51 U/L (16-61); Albumin, Serum 3.6 g/dL (3.2-5.0); Alkaline Phosphatase 56 U/L (45-117); Anion Gap 11 (5-15); BUN 18 mg/dL (7-18); BUN/Creat Ratio 16.4 RATIO (10-20); Calcium,Total 8.5 mg/dL (8.5-10.1); Chloride 106 mmol/L (98-107); EST Glomerular Filtration Rate 75 mL/min (>60); Est Glom Filt Rate - Afr Amer 90 mL/min (>60); Estimated Creatinine Clearance 86.22 ml/min; Globulin 3.5 g/dL (2.2-4.2); Glucose 122 mg/dL (74-106); Potassium 3.3 mmol/L (3.5-5.1); Protein, Total 7.1 g/dL (6.4-8.2); Sodium Level 139 mmol/L (136-145)
--- NOTE | 2020-04-01 20:46 | RAD_ITS ---
STUDY: X-RAY CHEST REASON FOR EXAM: Male, 54 years old. Shortness of breath TECHNIQUE: Frontal view of the chest COMPARISON: 09/27/2019 FINDINGS: The lungs are clear. There are no pleural effusions. There is no pneumothorax. The heart is normal in size. The visualized osseous structures are within normal limits. RAD/Chest 1 View (Portable) IMPRESSION: No acute thoracic pathology. Electronically Signed: Den Melgar, at 21:23 EDT Tel , Service support ,
[2020-04-01 20:57] LABS: International Normalized Ratio 1.2; Partial Thromboplast Time 27.4 Seconds (24.1-36.2); Prothrombin Time (Protime)PT. 14.8 SECONDS (11.7-14.9)
[2020-04-01 20:59] VITALS: BP 120/85; PULSE 110; RESP 18; O2SAT 94
[2020-04-01 21:10] LABS: BNP,B-Type NATRIURETIC PEPTIDE < 2.0 pg/mL (0-100)
[2020-04-01 21:13] LABS: D-Dimer Quantitative (DVT/PE) < 0.27 FEU/ug/m (0.27-0.49)
[2020-04-01 21:53] VITALS: BP 114/80; PULSE 102; RESP 16; O2SAT 98
[2020-04-01 23:05] VITALS: BP 104/77; PULSE 100; RESP 16; O2SAT 96
== END 2020-04-01 23:16 | disposition short-term general hospital (02) ==
LOC: ED 20:22
PROVIDERS: Emergency Provider Emergency Medicine; PCP Family Medicine
DX: K92.2 Gastrointestinal hemorrhage, unspecified (principal); Z98.890 Other specified postprocedural states; R06.02 Shortness of breath; R00.0 Tachycardia, unspecified; N40.0 Benign prostatic hyperplasia without lower urinary tract symptoms; Z72.0 Tobacco use; Z79.899 Other long term (current) drug therapy; Z90.5 Acquired absence of kidney
CPT/HCPCS: 71045; 80053; 83880; 84484; 85025; 85379; 85610; 85730; 86850; 86900; 86901; 93005; 99285; A4216

== ENCOUNTER → 2020-04-09 09:41 | Outpatient (CLI) | payer BC, SELFPAY ==
[2020-04-01 19:49] VITALS: BMI 32.8
[2020-04-09 12:49] LABS: Absolute Lymphocyte Count 1.59 X10^3/uL (0.83-4.51); Absolute Neutrophil Count 3.9 X10^3/uL (2.0-7.7); Basophil# 0.04 X10^3/uL; Basophil% 0.7 % (0-1); Eosinophil# 0.05 X10^3/uL; Eosinophils% 0.8 % (0-5); Hematocrit 33.8 % (40-54); Hemoglobin 10.3 g/dL (13.0-16.5); Lymphocyte # 1.59 X10^3/ul (4.0); Lymphocyte % 26.8 % (19-41); Mean Corp Hgb Conc 30.5 g/dL (32-36); Mean Corpuscular Hgb 26.8 pg (27.0-32.0); Monocyte# 0.33 X10^3/uL; Monocyte% 5.6 % (0-10); NRBC Flagged by Analyzer 0 % (0-5); Neutrophil # 3.92 X10^3/uL (2.7-7.7); Neutrophil % 65.9 % (47-70); Platelet Count 305 K/mm3 (150-450); RBC Distribution Width CV 14.3 % (11.6-14.6); RBC Distribution Width SD 43.5 fl (35.1-43.9); Red Blood Count 3.84 M/mm3 (4.6-6.2); White Blood Count 5.9 K/mm3 (4.4-11.0)
== END ==
PROVIDERS: PCP Family Medicine; Visit Provider Family Medicine
DX: K92.2 Gastrointestinal hemorrhage, unspecified (principal)
CPT/HCPCS: 36415; 85025

== ENCOUNTER → 2020-08-04 10:18 | Outpatient (CLI) | payer BC, SELFPAY ==
--- NOTE | 2020-08-04 10:25 | RAD_ITS ---
STUDY: X-RAY - LUMBAR SPINE REASON FOR EXAM: Male, 54 years old. 1 WEEK POST OP FUSION, SOME PAIN- NOTHING OUT OF THE ORDINARY PER PT TECHNIQUE: 2 view(s) of the lumbar spine were obtained. COMPARISON: None FINDINGS: Normal lumbar lordosis. There is no substantial scoliosis. Status post discectomy and transpedicular fixation at L3/L4 with anatomic alignment. There is multilevel endplate spondylosis of the lumbar vertebrae. There is multi-level degenerative disc disease with multi-level disc space narrowing. The soft tissue structures are unremarkable. RAD/Lumbar Spine 2 or 3 Views IMPRESSION: Postsurgical changes and degenerative disc disease as described above. Electronically Signed: Kyle Montes MD at 16:49 EDT Tel , Service support ,
== END ==
PROVIDERS: PCP Family Medicine; Referring Provider Orthopaedic Surgery; Visit Provider Orthopaedic Surgery
DX: M43.10 Spondylolisthesis, site unspecified (principal)
CPT/HCPCS: 72100

== ENCOUNTER → 2020-09-04 06:58 | Outpatient (CLI) | payer BC, SELFPAY ==
--- NOTE | 2020-09-04 07:02 | CT_ITS ---
STUDY: CT ABDOMEN AND PELVIS WITH CONTRAST REASON FOR EXAM: Male, 54 years old. RT KIDNEY CANCER FOLLOW UP, HX PROSTATE CANCER RADIATION DOSAGE (If Supplied By Facility): CTDIvol = ( 27.09 ) mGy, DLP = ( 1641.91 ) mGycm TECHNIQUE: Transaxial images were obtained from the dome of the diaphragm to the symphysis pubis without oral contrast. IV 100mL Isovue-370 was administered. Sagittal and coronal images were reconstructed. Individualized dose optimization techniques were used for this CT. COMPARISON: Comparison is made with prior study dated 03/14/2019. FINDINGS: The visualized lung bases are unremarkable. The visualized portions of the heart are within normal limits. Normal liver. Normal gallbladder and extrahepatic biliary system. Normal spleen. Normal pancreas. Normal bilateral adrenal glands. Stable postoperative changes along the anterior inferior pole of the right kidney. Normal left kidney. Normal visualized stomach. Normal small intestine. Normal colon. The appendix is visualized and appears normal. There is scattered atherosclerotic calcification of the abdominal aorta, without a demonstrated aneurysm. Normal inferior vena cava. Normal retroperitoneum. Normal urinary bladder. There is enlargement of the prostate gland. It measures 4.6 cm x 5 cm. This causes indentation at the bladder base. Central calcifications are seen. There is a left-sided inguinal hernia containing adipose tissue. The patient is status post laminectomy and interpedicular screw fixation and disc spacer placement at the L3-L4 level. CT/Abdomen/Pelvis WITH Contrast IMPRESSION: Stable postoperative changes of the inferior pole of the right kidney. Stable examination. Electronically Signed: Mohan Johnson, at 8:27 EST , Service support ,
--- NOTE | 2020-09-04 07:03 | RAD_ITS ---
STUDY: X-RAY - LUMBAR SPINE REASON FOR EXAM: Male, 54 years old. Follow up, L4-L5 fusion 6 weeks ago TECHNIQUE: 2 view(s) of the lumbar spine were obtained. COMPARISON: 08/04/2020 FINDINGS: Normal lumbar lordosis. There is no substantial scoliosis. Status post surgical fusion of L3 and L4 with disc spacer noted similar to previous study. Degenerative changes of the vertebral bodies with spurring at the endplates. Narrowed L1 to disc space. The soft tissue structures are unremarkable. RAD/Lumbar Spine 2 or 3 Views IMPRESSION: Degenerative and postsurgical changes of the lumbar spine. Electronically Signed: Maximo Davison DO at 23:57 EST Tel [phone], Service support ,
--- NOTE | 2020-09-04 09:14 | RAD_ITS ---
STUDY: X-RAY CHEST REASON FOR EXAM: Male, 54 years old. NEOPLASM OF RIGHT KIDNEY 3 YEARS AGO, NO CHEST COMPLAINTS TECHNIQUE: Frontal and lateral views COMPARISON: 04/01/2020. FINDINGS: The lungs are clear and expanded. There is no demonstrated pleural abnormality. Normal size heart. Normal mediastinum and jelena. Normal visualized pulmonary arteries. Normal visualized aortic arch and descending thoracic aorta. Normal visualized thoracic spine. Normal visualized ribs, clavicles, and shoulders. There is no demonstrated abnormality of the visualized soft tissue structures of the upper abdomen. RAD/Chest PA and Lateral IMPRESSION: Normal x-ray examination of the chest. Electronically Signed: Maximo Davison DO at 23:52 EST Tel [phone], Service support ,
[2020-09-04 10:20] LABS: PSA,Total - Annual Screen 0.88 ng/mL (0.00-4.00)
== END ==
PROVIDERS: PCP Family Medicine; Visit Provider Urology
DX: C64.1 Malignant neoplasm of right kidney, except renal pelvis (principal); M43.10 Spondylolisthesis, site unspecified; Z12.5 Encounter for screening for malignant neoplasm of prostate
CPT/HCPCS: 36415; 71046; 72100; 74177; 84153; Q9967; G0103

== ENCOUNTER 2020-10-20 15:00 | Outpatient (RCR) | payer BC, SELFPAY ==
--- NOTE | 2020-09-17 16:47 | HP.PTEVAL ---
Patient's Visit Information MITESH CAMARA is a 54 year old M referred to Physical Therapy by Dr. Roger Bautista MD with a diagnosis of s/p Fusion Lumbar L4/L5 07-28-2020. Date of Evaluation: 09/17/20 Physical Therapist: ENMANUEL Tate - Visit Plan Frequency: 2-3x /Week Duration: 2 Months Plan: 2-3X/ week for 6-8 weeks for AT for core stability, gait training, B hip strength, postural exercises, pain relief with HEP - Subjective s/p Fusion Lumbar L4/L5 07-28-2020.... Dr said that he could lift 25# but he has been doing more than that. 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 He has some L front of thigh pain if he does too much and some L sided L-pain that he got a few weeks after the surgery and with walking and would go away in a day but now it does not go away. He is sleeping ok. no trouble up and down stairs. He still has trouble with bending over and picking stuff up off the floor with L sided pain. He has pain with sitting.. and is always there. - Pain Back pain Pain Intensity (Out of 10): 2 - Objective Gait: Normal stride, decreased trunk rotation and arm swing. Trunk AROM: flexion 50%, ext 50%, SB R 75%, SB L 50%. + SLUMP test on the R for L sided LB pain. -B SLR. LE MMT: R hip flex 4+/5 and L hip flex 4-/5, B knee ext 4/5, B knee flex 4/5, B hip abd 4/5. Pt is able to lay prone on elbows with no pain. patella DTR's 2+/3 B - Goals Goal 1:: I HEP Goal Time Frame: 6-8 Weeks Goal 2:: Increase trunk AROM by 25% each plane (at time of eval: Trunk AROM: flexion 50%, ext 50%, SB R 75%, SB L 50%). Goal Time Frame: 6-8 Weeks Goal 3:: Decrease back pain to less than 1/10 with ADL's and driving his trunk Goal Time Frame: 6-8 Weeks Goal 4:: Sit with upright posture during treatment sessions Goal Time Frame: 6-8 Weeks - Rehabilitation Potential Rehabilitation Potential: Good - Anticipated Interventions Patient/Client Instruction: Educate patient on: Condition, Plan of Care For the Purpose of:: To decrease pain, To decrease swelling/inflammation, To increase ROM, To improve nutrient delivery to tissue, To increase oxygenation perfusion, To improve muscle performance and motor function, To improve ability to perform ADL's, To increase tolerance to activity/condition/position, To improve performance and independence with ADL's, To improve ability of physical actions for home/community/work/leisure, To improve health of tissue, To decrease soft tissue restriction, To increase flexibility/ROM Therapeutic Exercise to Include: Strength training, Body mechanics, Postural training, Flexibilty training, Gait and locomotor training, Active ROM, Dynamic Lumbar Stabilization, Scapular Strength/Stabilization For the Purpose of:: To increase ROM, To improve muscle performance and motor function, To improve ability to perform ADL's, To increase tolerance to activity/condition/position, To decrease level of supervision to perform tasks, To improve health of tissue, To decrease soft tissue restriction, To increase flexibility/ROM, To improve endurance Thank you for the opportunity to evaluate your patient. For Medicare and Medicare HMO plans, please review the plan of care and approve it. It will need to be FAXED BACK to us at [phone] for Medicare purposes. For Medicare only, by signing this I certify the plan of care. Please let me know if there are questions or concerns regarding this plan of care. Physician Signature: Date:
--- NOTE | 2020-12-02 10:54 | HP.PT.NRP ---
MITESH CAMARA was seen in my office for initial evaluation on 09/17/20. The following Plan of Care was established for this patient: Initial Frequency: 2-3x /Week Initial Duration: 2 Months Patient/Client Instruction: Educate patient on: Condition, Plan of Care For the Purpose of:: To decrease pain, To decrease swelling/inflammation, To increase ROM, To improve nutrient delivery to tissue, To increase oxygenation perfusion, To improve muscle performance and motor function, To improve ability to perform ADL's, To increase tolerance to activity/condition/position, To improve performance and independence with ADL's, To improve ability of physical actions for home/community/work/leisure, To improve health of tissue, To decrease soft tissue restriction, To increase flexibility/ROM Therapeutic Exercise to Include: Strength training, Body mechanics, Postural training, Flexibilty training, Gait and locomotor training, Active ROM, Dynamic Lumbar Stabilization, Scapular Strength/Stabilization For the Purpose of:: To increase ROM, To improve muscle performance and motor function, To improve ability to perform ADL's, To increase tolerance to activity/condition/position, To decrease level of supervision to perform tasks, To improve health of tissue, To decrease soft tissue restriction, To increase flexibility/ROM, To improve endurance This patient was last seen in our office 10/20/20. Pertinent comments regarding their Physical therapy will appear below: Pt was not able to make his last appt but reports that he was doing very well. He will be discharged at this time. At this point I will be discontinuing this patient from physical therapy. I would be happy to see this patient again in the future if found appropriate by the physician. Thank you! ENMANUEL Tate
== END 2020-10-20 19:00 | disposition home or self-care (01) ==
LOC: PT 15:00
PROVIDERS: PCP Family Medicine; Referring Provider Orthopaedic Surgery; Visit Provider Orthopaedic Surgery
DX: Z98.1 Arthrodesis status (principal)
CPT/HCPCS: 97113; 97161

== ENCOUNTER → 2020-11-11 14:56 | Outpatient (CLI) | payer BC, SELFPAY ==
--- NOTE | 2020-11-11 15:00 | RAD_ITS ---
STUDY: X-RAY - LUMBAR SPINE REASON FOR EXAM: Male, 55 years old. SPONDYLOLISTHESIS FOLLOW UP. TECHNIQUE: 2 view(s) of the lumbar spine were obtained. COMPARISON: 09/04/2020 FINDINGS: Normal lumbar lordosis. Mild levoscoliosis. Status post discectomy, interbody fusion, and transpedicular fixation at L3/L4 with anatomic alignment. There is multilevel endplate spondylosis of the lumbar vertebrae. There is multi-level degenerative disc disease with multi-level disc space narrowing. The soft tissue structures are unremarkable. RAD/Lumbar Spine 2 or 3 Views IMPRESSION: No change from 09/04/2020. Electronically Signed: Kyle Montes MD at 16:56 EST Tel , Service support ,
== END ==
PROVIDERS: PCP Family Medicine; Referring Provider Orthopaedic Surgery; Visit Provider Orthopaedic Surgery
DX: M43.10 Spondylolisthesis, site unspecified (principal)
CPT/HCPCS: 72100

== ENCOUNTER → 2021-02-09 14:24 | Outpatient (CLI) | payer BC, SELFPAY ==
--- NOTE | 2021-02-09 14:26 | RAD_ITS ---
INDICATION: SPONDYLOLISTHESIS EXAMINATION/TECHNIQUE: X-RAY - XR Spine Lumbar 2 or 3 Views COMPARISON: 11/11/2020. FINDINGS: VERTEBRAE: Preserved vertebral body height. No fracture. No spondylolisthesis. Preservation of the normal lumbar lordosis. Mild levoscoliosis. Multilevel facet arthropathy. Status post discectomy, interbody fusion, and transpedicular fixation at L3/L4 with anatomic alignment. DISCS: Mild multilevel disc space narrowing and osteophytosis. INCLUDED ABDOMEN: Included bowel gas pattern is non-obstructive. RAD/Lumbar Spine 2 or 3 Views IMPRESSION: No change from 11/11/2020 Electronically Signed: Ridge Bermudez MD at 17:00 EDT Tel , Service support ,
== END ==
PROVIDERS: PCP Family Medicine; Referring Provider Orthopaedic Surgery; Visit Provider Orthopaedic Surgery
DX: M43.10 Spondylolisthesis, site unspecified (principal)
CPT/HCPCS: 72100

== ENCOUNTER → 2021-03-16 14:46 | Outpatient (CLI) | payer BC, SELFPAY ==
--- NOTE | 2021-03-16 14:50 | RAD_ITS ---
STUDY: X-RAY - LUMBAR SPINE REASON FOR EXAM: Male, 55 years old. LUMBAR SPRAIN/STRAIN TECHNIQUE: 2 view(s) of the lumbar spine were obtained. COMPARISON: 02/09/2021 FINDINGS: Normal lumbar lordosis. Mild levoscoliosis centered at L3. Status post discectomy, interbody fusion, and transpedicular fixation at L3/L4 with anatomic alignment. 5 mm retrolisthesis of L1 on L2, 2 mm retrolisthesis of L2 on L3 There is multilevel endplate spondylosis of the lumbar vertebrae. There is multi-level degenerative disc disease with multi-level disc space narrowing. The soft tissue structures are unremarkable. RAD/Lumbar Spine 2 or 3 Views IMPRESSION: 1. Status post discectomy, interbody fusion, and transpedicular fixation at L3/L4 with anatomic alignment. 2. Mild levoscoliosis with degenerative disc disease with subluxation as described above. No change from 02/09/2021. Electronically Signed: Kyle Montes MD at 8:42 EDT Tel , Service support ,
== END ==
PROVIDERS: PCP Family Medicine; Referring Provider Orthopaedic Surgery; Visit Provider Orthopaedic Surgery
DX: S33.5XXA Sprain of ligaments of lumbar spine, initial encounter (principal); X58.XXXA Exposure to other specified factors, initial encounter; Y93.9 Activity, unspecified; Y92.9 Unspecified place or not applicable; Y99.9 Unspecified external cause status
CPT/HCPCS: 72100

== ENCOUNTER → 2021-03-30 07:04 | Outpatient (CLI) | payer BC, SELFPAY ==
[2021-03-30 10:16] LABS: Absolute Lymphocyte Count 1.36 X10^3/uL (0.83-4.51); Absolute Neutrophil Count 3.6 X10^3/uL (2.0-7.7); Basophil# 0.05 X10^3/uL; Basophil% 0.9 % (0-1); Eosinophil# 0.05 X10^3/uL; Eosinophils% 0.9 % (0-5); Hematocrit 45.9 % (40-54); Hemoglobin 15.4 g/dL (13.0-16.5); Lymphocyte # 1.36 X10^3/ul (0.83-4.51); Lymphocyte % 25.1 % (19-41); Mean Corp Hgb Conc 33.6 g/dL (32-36); Mean Corpuscular Hgb 27.1 pg (27.0-32.0); Mean Corpuscular Volume 80.7 fL (80-94); Mean Platelet Vol. 10.3 fl (6.2-12.0); Monocyte# 0.31 X10^3/uL; Monocyte% 5.7 % (0-10); NRBC Flagged by Analyzer 0 % (0-5); Neutrophil # 3.62 X10^3/uL (2.7-7.7); Platelet Count 204 K/mm3 (150-450); RBC Distribution Width CV 12.7 % (11.6-14.6); RBC Distribution Width SD 36.6 fl (35.1-43.9); Red Blood Count 5.69 M/mm3 (4.6-6.2); White Blood Count 5.4 K/mm3 (4.4-11.0)
[2021-03-30 10:40] LABS: ALB/GLOB Ratio 1.3 RATIO (0.9-2.4); AST(SGOT) 30 U/L (15-37); Alanine Aminotransfer ALT/SGPT 52 U/L (16-61); Alkaline Phosphatase 59 U/L (45-117); Anion Gap 10 (5-15); BUN 12 mg/dL (7-18); BUN/Creat Ratio 12.8 RATIO (10-20); Calcium,Total 8.7 mg/dL (8.5-10.1); Chloride 102 mmol/L (98-107); Cholesterol 245 mg/dL (200); Creatinine, Serum 0.94 mg/dL (0.70-1.30); EST Glomerular Filtration Rate 90 mL/min (>60); Est Glom Filt Rate - Afr Amer 108 mL/min (>60); Globulin 3.1 g/dL (2.2-4.2); Glucose 120 mg/dL (74-106); High Density Lipoprotein 28 mg/dL; Potassium 4.2 mmol/L (3.5-5.1); Protein, Total 7.1 g/dL (6.4-8.2); Sodium Level 139 mmol/L (136-145); Triglycerides 1030 mg/dL
== END ==
PROVIDERS: PCP Family Medicine; Referring Provider Family Medicine; Visit Provider Family Medicine
DX: E78.5 Hyperlipidemia, unspecified (principal)
CPT/HCPCS: 36415; 80053; 80061; 85025

== ENCOUNTER → 2021-09-01 15:40 | Outpatient (CLI) | payer BC, SELFPAY ==
--- NOTE | 2021-09-01 15:43 | CT_ITS ---
STUDY: CT ABDOMEN AND PELVIS WITH CONTRAST REASON FOR EXAM: Male, 55 years old. KIDNEY CA RADIATION DOSAGE (If Supplied By Facility): CTDIvol = ( 16.83 ) mGy, DLP = ( 1950.94 ) mGycm TECHNIQUE: Transaxial images were obtained from the dome of the diaphragm to the symphysis pubis without oral contrast. IV 100mL Isovue-300 was administered. Sagittal and coronal images were reconstructed. Individualized dose optimization techniques were used for this CT. COMPARISON: None. FINDINGS: The visualized lung bases are unremarkable. The visualized portions of the heart are within normal limits. Normal liver. Normal gallbladder and extrahepatic biliary system. Normal spleen. Normal pancreas. Normal bilateral adrenal glands. Probable anterior cortical thinning/scarring of the right kidney. 9 mm cyst in the left kidney. Normal visualized stomach. Normal small intestine. Normal colon. The appendix is visualized and appears normal. Calcified abdominal aorta. Normal inferior vena cava. Normal retroperitoneum. Normal urinary bladder. Small fatty umbilical hernia. Degenerative vertebral changes. Status post surgical fusion of L3-L4. CT/Abdomen/Pelvis W IV Cont ONLY IMPRESSION: Left renal cyst. Small fatty umbilical hernia. Electronically Signed: Maximo Davison DO at 16:21 EST Tel [phone], Service support ,
[2021-09-01 15:55] LABS: CREATININE FINGERSTICK 0.8 mg/dL (0.70-1.30); EGFR FINGERSTICK > 60.0000 mL/min (>60)
--- NOTE | 2021-09-01 16:08 | RAD_ITS ---
STUDY: X-RAY CHEST REASON FOR EXAM: Male, 55 years old. MALIGNANT NEOPLASM OF RIGHT KIDNEY, EXCEPT RENAL PELVIS. TECHNIQUE: Bilateral lateral views COMPARISON: None. FINDINGS: The lungs are clear and expanded. There is no demonstrated pleural abnormality. Normal size heart. Normal mediastinum and jelena. Normal visualized pulmonary arteries. Normal visualized aortic arch and descending thoracic aorta. Normal visualized thoracic spine. Normal visualized ribs, clavicles, and shoulders. There is no demonstrated abnormality of the visualized soft tissue structures of the upper abdomen. RAD/Chest PA and Lateral IMPRESSION: Normal x-ray examination of the chest. Electronically Signed: Maximo Davison DO at 16:40 EST Tel [phone], Service support ,
== END ==
PROVIDERS: PCP Family Medicine; Referring Provider Urology; Visit Provider Urology
DX: C64.1 Malignant neoplasm of right kidney, except renal pelvis (principal)
CPT/HCPCS: 71046; 74177; Q9967

== ENCOUNTER → 2021-09-05 08:25 | Outpatient (CLI) | payer BC, SELFPAY ==
[2021-09-05 09:15] LABS: Hematocrit 46.3 % (40-54); Hemoglobin 15.7 g/dL (13.0-16.5); Mean Corp Hgb Conc 33.9 g/dL (32-36); Mean Corpuscular Hgb 27.4 pg (27.0-32.0); Mean Corpuscular Volume 80.8 fL (80-94); Mean Platelet Vol. 9.8 fl (6.2-12.0); Platelet Count 236 K/mm3 (150-450); RBC Distribution Width CV 12.5 % (11.6-14.6); RBC Distribution Width SD 36.4 fl (35.1-43.9); Red Blood Count 5.73 M/mm3 (4.6-6.2)
[2021-09-05 10:25] LABS: ALB/GLOB Ratio 1.2 RATIO (0.9-2.4); AST(SGOT) 25 U/L (15-37); Alanine Aminotransfer ALT/SGPT 68 U/L (16-61); Alkaline Phosphatase 67 U/L (45-117); Anion Gap 7 (5-15); BUN 13 mg/dL (7-18); BUN/Creat Ratio 15.7 RATIO (10-20); Calcium,Total 9.4 mg/dL (8.5-10.1); Chloride 106 mmol/L (98-107); Creatinine, Serum 0.83 mg/dL (0.70-1.30); EST Glomerular Filtration Rate 103 mL/min (>60); Est Glom Filt Rate - Afr Amer 124 mL/min (>60); Globulin 3.3 g/dL (2.2-4.2); Glucose 143 mg/dL (74-106); Potassium 4.2 mmol/L (3.5-5.1); Protein, Total 7.3 g/dL (6.4-8.2); Sodium Level 137 mmol/L (136-145)
== END ==
PROVIDERS: PCP Family Medicine; Visit Provider Urology
DX: C64.1 Malignant neoplasm of right kidney, except renal pelvis (principal); N40.1 Benign prostatic hyperplasia with lower urinary tract symptoms
CPT/HCPCS: 36415; 80053; 84153; 84402; 84403; 85027; G0103

== ENCOUNTER → 2021-09-07 13:57 | Outpatient (CLI) | payer BC, SELFPAY ==
--- NOTE | 2021-09-07 14:05 | RAD_ITS ---
STUDY: X-RAY - LUMBAR SPINE REASON FOR EXAM: Male, 55 years old. Back pain Spinal stenosis, lumbar region with neurogenic claudication TECHNIQUE: XR Spine Lumbar 2 or 3 Views COMPARISON: 03/16/2021 FINDINGS: Normal lumbar lordosis. There is no substantial scoliosis. There is a normal alignment of the vertebrae. Spinal fixation hardware at L3-4. Disc spacer in place. There is multilevel endplate spondylosis of the lumbar vertebrae. There is multi-level degenerative disc disease with multi-level disc space narrowing. There are atherosclerotic vascular calcifications. The soft tissue structures are unremarkable. RAD/Lumbar Spine 2 or 3 Views IMPRESSION: Degenerative changes of the spine, as detailed above. No significant change since prior study. Electronically Signed: Marshall Escalera MD at 18:25 EST , Service support ,
== END ==
PROVIDERS: PCP Family Medicine; Referring Provider Orthopaedic Surgery; Visit Provider Orthopaedic Surgery
DX: M48.062 Spinal stenosis, lumbar region with neurogenic claudication (principal)
CPT/HCPCS: 72100

== ENCOUNTER → 2022-03-26 | Outpatient (CLI) | payer BC, SELFPAY ==
[2022-03-26 10:31] LABS: ALB/GLOB Ratio 1.2 RATIO (0.9-2.4); AST(SGOT) 14 U/L (15-37); Alanine Aminotransfer ALT/SGPT 56 U/L (16-61); Alkaline Phosphatase 43 U/L (45-117); Anion Gap 5 (5-15); BUN 15 mg/dL (7-18); BUN/Creat Ratio 17.9 RATIO (10-20); Calcium,Total 8.7 mg/dL (8.5-10.1); Chloride 107 mmol/L (98-107); Cholesterol 240 mg/dL (200); Creatinine, Serum 0.84 mg/dL (0.70-1.30); EST Glomerular Filtration Rate 101 mL/min (>60); Est Glom Filt Rate - Afr Amer 123 mL/min (>60); Globulin 3.2 g/dL (2.2-4.2); Glucose 127 mg/dL (74-106); High Density Lipoprotein 48 mg/dL; Potassium 4.2 mmol/L (3.5-5.1); Protein, Total 7.2 g/dL (6.4-8.2); Sodium Level 138 mmol/L (136-145); Triglycerides 76 mg/dL; Very Low Density Lipoprotein 15 mg/dL (5-40)
== END | disposition home or self-care (01) ==
PROVIDERS: PCP Family Medicine; Referring Provider Family Medicine; Visit Provider Family Medicine
DX: E78.5 Hyperlipidemia, unspecified (principal)
CPT/HCPCS: 36415; 80053; 80061

== ENCOUNTER 2022-04-13 17:09 | Outpatient (RCR) | payer BC, SELFPAY ==
--- NOTE | 2022-04-13 18:23 | HP.PTEVAL ---
Patient's Visit Information MITESH CAMARA is a 56 year old M referred to Physical Therapy by Dr. Chaitanya Higuera MD with a diagnosis of vertigo. Date of Evaluation: 04/13/22 Physical Therapist: Pradip Omalley DPT, OCS, CSCS - Visit Plan Frequency: 1x/Week Duration: 4-6 Weeks Plan: weekly x 4-6 for progression of adaptation ex(doing VOR H and V today 60 sec 6x/day), monitor balance foam ec and walk ec for need for balance ex. - Subjective I am here for vertigo. Today was a good day. Constantly movement in visual environment. Cabinets look tilted at times. Drives truck for a living. Has had vertigo for 4 weeks insidously. May have started with inner ear infection and is seeing [facility]. Miserable when it started on a , continued to work for a few days. Took the next week off. Could not stand up at the time. That part got better but left with some movement in visual environment. Worse with driving but functional. In a truck 12 hours per day 5 days per week. The more he does the worse it gets. Calms down at night in the house. Sleeping is OK, lying down is fine. Feels exhausted last couple weeks. Having MRI from [facility]. Did a week of steroids which helped. Sinus feels full. Activities pretty normal. Overall 75 - Objective R head thrust. Walks back to therapy slow and I. Trasnfers without UE I. Steps with one rail I. Difficulty with ec walking and stand on foam with EC. Cervical aROM WNL and without pain. - B hallpike kellen. - roll test. Oculomotor: no nystagmus with gaze or head shake. - ocular tilt. - skew eye deviation. + R head thrust. Pursuit and saccades are normal. VOR 30 sec H is 3/10 dizzy for 15 seconds. - Balance/Special Test Scores Functional Gait Assessment Score: 28 % Disability: 6.6700 CATSIB Score (Max score 120 seconds): 97 Dizziness Score: 32 - Goals Goal 1:: [id number] dizzyness with head movements and in normal day Goal Time Frame: 4-6 Weeks Goal 2:: Work without increase fatigue or misery Goal Time Frame: 4-6 Weeks Goal 3:: stand foam with ec 20 seconds without LOB, walk with ec without LOB Goal Time Frame: 4-6 Weeks Goal 4:: <8 score on DHI Goal Time Frame: 4-6 Weeks - Rehabilitation Potential Physical Therapy Diagnosis: Vertigo likely unilateral vestibular hypofunction Rehabilitation Potential: Good - Anticipated Interventions Patient/Client Instruction: Educate patient on: Condition, Plan of Care For the Purpose of:: To increase tolerance to activity/condition/position, To improve ability of physical actions for home/community/work/leisure, To improve gait and locomotor functions Therapeutic Exercise to Include: Balance training Comment: vestibular For the Purpose of:: To improve muscle performance and motor function, To increase tolerance to activity/condition/position, To improve ability of physical actions for home/community/work/leisure, To improve gait and locomotor functions Thank you for the opportunity to evaluate your patient. For Medicare and Medicare HMO plans, please review the plan of care and approve it. It will need to be FAXED BACK to us at [phone] for Medicare purposes. For Medicare only, by signing this I certify the plan of care. Please let me know if there are questions or concerns regarding this plan of care. Physician Signature: Date:
--- NOTE | 2022-04-27 12:34 | HP.PT.NRP ---
MITESH CAMARA was seen in my office for initial evaluation on 04/13/22. The following Plan of Care was established for this patient: Initial Frequency: 1x/Week Initial Duration: 4-6 Weeks Patient/Client Instruction: Educate patient on: Condition, Plan of Care For the Purpose of:: To increase tolerance to activity/condition/position, To improve ability of physical actions for home/community/work/leisure, To improve gait and locomotor functions Therapeutic Exercise to Include: Balance training For the Purpose of:: To improve muscle performance and motor function, To increase tolerance to activity/condition/position, To improve ability of physical actions for home/community/work/leisure, To improve gait and locomotor functions This patient was last seen in our office 04/13/22. Pertinent comments regarding their Physical therapy will appear below: Pt seen one visit and instructed in appropriate HEP. He cancelled all future visits stating that he feels great. I will discontinue him at his request. At this point I will be discontinuing this patient from physical therapy. I would be happy to see this patient again in the future if found appropriate by the physician. Thank you! Pradip Omalley, DPT, OCS, CSCS Balance/Gait/Functional tests - Balance/Special Test Scores Functional Gait Assessment Score: 28 % Disability: 6.6700 CATSIB Score (Max score 120 seconds): 97 Dizziness Score: 32
== END 2022-04-13 19:00 | disposition home or self-care (01) ==
LOC: PT 17:09
PROVIDERS: PCP Family Medicine; Visit Provider Family Medicine
DX: R42 Dizziness and giddiness (principal)
CPT/HCPCS: 97110; 97162

== ENCOUNTER → 2022-04-19 | Outpatient (CLI) | payer BC, SELFPAY ==
--- NOTE | 2022-04-19 17:29 | MRI_ITS ---
EXAM: MR HEAD WITHOUT AND WITH INTRAVENOUS CONTRAST, INTERNAL AUDITORY CANAL PROTOCOL CLINICAL INDICATION: RT HEARING LOSS,ATAXIA Technologist Notes TINNITUS, RIGHT EAR PAIN TECHNIQUE: Multiplanar and multisequence MR images of the internal auditory canal were obtained without and with intravenous contrast. This report was created using [employer] report generation technology. CONTRAST: IV 20mL DOTAREM COMPARISON: None. FINDINGS: CRANIAL NERVES: Unremarkable. No mass. No abnormal enhancement. COCHLEA AND SEMICIRCULAR CANALS: Unremarkable. CEREBELLOPONTINE ANGLES: Unremarkable. No mass. BRAIN AND EXTRA-AXIAL SPACES: Unremarkable as visualized. No intra- or extra-axial hemorrhage. No intracranial mass or mass effect. There is preservation of the angeles/white matter interface. Posterior fossa structures are unremarkable. Ventricles are appropriate for age. No hydrocephalus. Basal cisterns are patent. BONES/JOINTS: Unremarkable. No discrete lytic or blastic abnormalities. SINUSES: Unremarkable as visualized. Clear. MASTOID AIR CELLS: Unremarkable as visualized. Clear. ORBITS: Unremarkable as visualized. Both globes, extraocular muscles, optic nerves and retrobulbar fat appear unremarkable. MRI/Brain W/WO Contrast IMPRESSION: Unremarkable MRI of the internal auditory canal. Electronically Signed: Marshall Escalera MD at 18:50 EDT ,
== END | disposition home or self-care (01) ==
PROVIDERS: PCP Family Medicine; Visit Provider Otolaryngology Otolaryngology/Facial Plastic Surgery
DX: H91.91 Unspecified hearing loss, right ear (principal); R27.0 Ataxia, unspecified
CPT/HCPCS: 70553; A9575

== ENCOUNTER → 2022-08-24 | Outpatient (CLI) | payer BC, SELFPAY | END | disposition home or self-care (01) | LOC: MTLAB 15:51 → LABSPEC 15:52 | PROVIDERS: PCP Family Medicine; Referring Provider Family Medicine; Visit Provider Family Medicine | DX: R19.7 Diarrhea, unspecified (principal) | CPT/HCPCS: 87493; 87506 ==

== ENCOUNTER → 2022-09-17 | Outpatient (CLI) | payer BC, SELFPAY ==
--- NOTE | 2022-09-17 10:50 | RAD_ITS ---
STUDY: X-RAY CHEST REASON FOR EXAM: Male, 56 years old. Malignant neoplasm of kidney. TECHNIQUE: Single frontal view of the chest. COMPARISON: September 01, 2021. FINDINGS: Stable mild hyperinflation with scattered healed parenchymal granulomatous calcifications There is no demonstrated pleural abnormality. Normal size heart. Normal mediastinum and jelena. Normal visualized pulmonary arteries. Normal visualized aortic arch and descending thoracic aorta. Normal visualized thoracic spine. Normal visualized ribs, clavicles, and shoulders. There is no demonstrated abnormality of the visualized soft tissue structures of the upper abdomen. RAD/Chest PA and Lateral IMPRESSION: Stable chest with no acute or active cardiopulmonary disease. Electronically Signed: Henry Perrin, at 11:51 EST ,
[2022-09-17 11:29] LABS: PSA,Total - Annual Screen 1.07 ng/mL (0.00-4.00)
== END | disposition home or self-care (01) ==
LOC: RAD 10:19
PROVIDERS: PCP Family Medicine; Visit Provider Urology
DX: C64.1 Malignant neoplasm of right kidney, except renal pelvis (principal); Z12.5 Encounter for screening for malignant neoplasm of prostate
CPT/HCPCS: 36415; 71046; 84153; G0103

== ENCOUNTER → 2022-10-09 | Outpatient (CLI) | payer BC, SELFPAY ==
[2022-10-09 09:43] LABS: ALB/GLOB Ratio 1.1 RATIO (0.9-2.4); AST(SGOT) 28 U/L (15-37); Alanine Aminotransfer ALT/SGPT 80 U/L (16-61); Albumin, Serum 3.9 g/dL (3.2-5.0); Alkaline Phosphatase 50 U/L (45-117); Anion Gap 8 (5-15); BUN 14 mg/dL (7-18); BUN/Creat Ratio 14.7 RATIO (10-20); Calcium,Total 9.1 mg/dL (8.5-10.1); Chloride 105 mmol/L (98-107); Cholesterol 208 mg/dL (200); Creatinine, Serum 0.95 mg/dL (0.70-1.30); EST Glomerular Filtration Rate 87 mL/min (>60); Est Glom Filt Rate - Afr Amer 106 mL/min (>60); Globulin 3.4 g/dL (2.2-4.2); Glucose 129 mg/dL (74-106); High Density Lipoprotein 39 mg/dL; Potassium 4.2 mmol/L (3.5-5.1); Protein, Total 7.3 g/dL (6.4-8.2); Sodium Level 139 mmol/L (136-145); Triglycerides 264 mg/dL; Very Low Density Lipoprotein 53 mg/dL (5-40)
== END | disposition home or self-care (01) ==
LOC: LAB 08:01
PROVIDERS: PCP Family Medicine; Visit Provider Family Medicine
DX: E78.5 Hyperlipidemia, unspecified (principal)
CPT/HCPCS: 36415; 80053; 80061

== ENCOUNTER → 2023-05-14 | Outpatient (CLI) | payer BC, SELFPAY ==
[2023-05-14 09:48] LABS: Anion Gap 4 (5-15); BUN 15 mg/dL (7-18); BUN/Creat Ratio 15.1 RATIO (10-20); Calcium,Total 8.4 mg/dL (8.5-10.1); Chloride 111 mmol/L (98-107); Cholesterol 157 mg/dL (200); Creatinine, Serum 0.99 mg/dL (0.70-1.30); EST Glomerular Filtration Rate 83 mL/min (>60); Est Glom Filt Rate - Afr Amer 101 mL/min (>60); Glucose 124 mg/dL (74-106); High Density Lipoprotein 40 mg/dL; Potassium 3.9 mmol/L (3.5-5.1); Sodium Level 139 mmol/L (136-145); Triglycerides 95 mg/dL; Very Low Density Lipoprotein 19 mg/dL (5-40)
[2023-05-14 10:21] LABS: Hemoglobin A1c 5.3 % (3.8-5.6)
== END | disposition home or self-care (01) ==
LOC: LAB 08:48
PROVIDERS: PCP Family Medicine; Referring Provider Family Medicine; Visit Provider Family Medicine
DX: Z00.00 Encounter for general adult medical examination without abnormal findings (principal)
CPT/HCPCS: 36415; 80048; 80061; 83036

== ENCOUNTER → 2023-09-26 | Outpatient (CLI) | payer BC, SELFPAY ==
--- NOTE | 2023-09-26 15:30 | RAD_ITS ---
INDICATION: MALIGNANT NEOPLASM OF R KIDNEY EXAMINATION/TECHNIQUE: X-RAY - XR Chest 2 Views COMPARISON: Prior study dated: 09/17/2022 FINDINGS: LINES/DEVICES: None. LUNGS: No consolidation, edema or effusion. No pneumothorax. MEDIASTINUM AND CARDIOVASCULAR STRUCTURES: Cardiac silhouette not enlarged. Central airways and mediastinal contour are unremarkable. BONES AND SOFT TISSUES: Mild degenerative changes of thoracic spine. RAD/Chest PA and Lateral IMPRESSION: No radiographic evidence of acute cardiopulmonary disease. Electronically Signed: Angel Ayala MD at 22:55 EST ,
[2023-09-26 16:03] LABS: PSA,Total - Annual Screen 1.55 ng/mL (0.00-4.00)
== END | disposition home or self-care (01) ==
LOC: LAB 15:13
PROVIDERS: PCP Family Medicine; Referring Provider Urology; Visit Provider Urology
DX: Z12.5 Encounter for screening for malignant neoplasm of prostate (principal); C64.1 Malignant neoplasm of right kidney, except renal pelvis
CPT/HCPCS: 36415; 71046; 84153; G0103

== ENCOUNTER → 2024-05-07 | Outpatient (CLI) | payer BC, SELFPAY ==
[2024-05-07 18:27] LABS: Anion Gap 9 (5-15); BUN 7 mg/dL (7-18); BUN/Creat Ratio 8.1 RATIO (10-20); Calcium,Total 9.2 mg/dL (8.5-10.1); Chloride 104 mmol/L (98-107); Cholesterol 223 mg/dL (200); Creatinine, Serum 0.87 mg/dL (0.70-1.30); EST Glomerular Filtration Rate 97 mL/min (>60); Est Glom Filt Rate - Afr Amer 117 mL/min (>60); Glucose 92 mg/dL (74-106); High Density Lipoprotein 49 mg/dL; Potassium 3.5 mmol/L (3.5-5.1); Sodium Level 137 mmol/L (136-145); Triglycerides 244 mg/dL; Very Low Density Lipoprotein 49 mg/dL (5-40)
== END | disposition home or self-care (01) ==
LOC: MFPLAB 16:12
PROVIDERS: PCP Family Medicine; Visit Provider Family Medicine
DX: Z00.00 Encounter for general adult medical examination without abnormal findings (principal)
CPT/HCPCS: 36415; 80048; 80061

== ENCOUNTER → 2024-05-09 | Outpatient (CLI) | payer BC, SELFPAY ==
[2024-05-09 17:58] LABS: Hemoglobin A1c 5.1 % (3.8-5.6)
== END | disposition home or self-care (01) ==
LOC: MFPLAB 14:17
PROVIDERS: PCP Family Medicine; Visit Provider Family Medicine
DX: R73.03 Prediabetes (principal)
CPT/HCPCS: 36415; 83036

== ENCOUNTER → 2024-09-24 | Outpatient (CLI) | payer BC, SELFPAY | END | disposition home or self-care (01) | PROVIDERS: PCP Family Medicine; Referring Provider Urology; Visit Provider Urology | DX: Z12.5 Encounter for screening for malignant neoplasm of prostate (principal) ==

== ENCOUNTER → 2024-09-26 | Outpatient (CLI) | payer BC, SELFPAY ==
[2024-09-26 09:29] LABS: PSA,Total - Annual Screen 1.04 ng/mL (0.00-4.00)
== END | disposition home or self-care (01) ==
LOC: LAB 08:14
PROVIDERS: PCP Family Medicine; Referring Provider Urology; Visit Provider Urology
DX: Z12.5 Encounter for screening for malignant neoplasm of prostate (principal)
CPT/HCPCS: 84153; G0103

== ENCOUNTER → 2025-04-03 | Outpatient (CLI) | payer BC, SELFPAY ==
[2025-04-03 13:25] LABS: Anion Gap 17 (5-15); BUN 12 mg/dL (4-19); BUN/Creat Ratio 14.6 RATIO (10-20); Calcium,Total 9.4 mg/dL (7.6-11.0); Carbon Dioxide 16.7 mmol/L (21.0-32.0); Chloride 103 mmol/L (98-108); Creatinine, Serum 0.85 mg/dL (0.70-1.20); EST Glomerular Filtration Rate 101 (>60); Glucose 103 mg/dL (70-99); Potassium 4.2 mmol/L (3.3-5.1); Sodium Level 137 mmol/L (133-145)
[2025-04-03 13:42] LABS: Hemoglobin A1c 5.5 % (<=5.6)
[2025-04-03 13:53] LABS: Cholesterol 295 mg/dL (<=200); High Density Lipoprotein 33 mg/dL; cholesterol:hdl ratio screen 9.08
[2025-04-03 13:57] LABS: Low Density Lipoprotein Calc. 33 mg/dL; Triglycerides 1148 mg/dL; Very Low Density Lipoprotein 230 mg/dL (5-40)
== END | disposition home or self-care (01) ==
LOC: MFPLAB 09:58
PROVIDERS: PCP Family Medicine; Referring Provider Family Medicine; Visit Provider Family Medicine
DX: Z00.00 Encounter for general adult medical examination without abnormal findings (principal)
CPT/HCPCS: 36415; 80048; 80061; 83036